=== PATIENT | male | born 1965 | race Caucasian/White ===

== ENCOUNTER → 2016-02-28 | Outpatient (CLI) | payer MEDICARE, MEDICAID | LOC: M PAIN 13:20 | PROVIDERS: ATTEND Anesthesiology | DX: M25.9 Joint disorder, unspecified (principal); Z53.9 Procedure and treatment not carried out, unspecified reason ==

== ENCOUNTER → 2016-03-13 | Outpatient (CLI) | payer OTHER, MEDICARE, MEDICAID ==
--- NOTE | 2016-03-13 23:53 | ECWPNPC ---
PATIENT NAME: EFRA MARTEL : 1965 GENDER: MALE VISIT DATE: 03/13/2016 DISCHARGE DATE: 03/13/16 1434 VISIT LOCKED DATE TIME: PHYSICIAN: CURTIS COLINDRES RESOURCE: CURTIS COLINDRES REASON FOR APPOINTMENT 1. W/C LEFT SHOULDER. HISTORY OF PRESENT ILLNESS NEW PATIENT CONSULT: WHEN DID YOUR PAIN FIRST START? . BRIEFLY DESCRIBE HOW YOUR PAIN STARTED? . HOW DOES YOUR PAIN CHANGE WITH TIME? . DOES YOUR PAIN AWAKEN YOU FROM SLEEP? . HOW MANY HOURS OF SLEEP DO YOU NORMALLY GET? . ANY DIAGNOSTIC TESTING? . FACILITY WHERE TESTS WERE DONE? ____. PAIN TREATMENT TREATMENT YES CANCER HAVE YOU EVER HAD ANY TYPE OF CANCER?NO NO. PAIN SCREENING: PATIENT HAS A COMPLAINT OF ACUTE OR CHRONIC PAIN YES FALL RISK SCREENING: SCREENING :NO FALLS IN THE PAST YEAR PIEDRA INVENTORY: QUESTIONNAIRE ASSESSEDTBD SCORE VALUE CALCULATED TBD CURRENT MEDICATIONS TAKING OXYCODONE HCL 15 MG TABLET 1 TABLET NEEDED ORALLY EVERY 6 HRS PRN FOR PAIN MDD4, TAKING LYRICA 200 MG CAPSULE 1 CAPSULE ORALLY THREE TIMES A DAY FOR PAIN MDD3, TAKING IBUPROFEN 800 MG TABLET 1 TABLET ORALLY THREE TIMES DAILY NEEDED, MEDICATION LIST REVIEWED AND RECONCILED WITH THE PATIENT PAST MEDICAL HISTORY SPINABIFIDA, CHEST PAIN, SLEEP APNEA. ALLERGIES N.K.D.A. SURGICAL HISTORY NECK SURGERY 2000, NECK SURGERY 2009, FX WRIST RT , RT CTR , 3 LT SHOULDER SURGERY . FAMILY HISTORY FATHER: ALIVE 80 YRS, DIAGNOSED WITH DIABETES MOTHER: ALIVE 81 YRS, DIAGNOSED WITH STROKE 3 SISTER(S) - HEALTHY. 1 SON(S) , 1 DAUGHTER(S) - HEALTHY. . SOCIAL HISTORY GENERAL: TOBACCO USE ARE YOU A:NONSMOKER ARE YOU A:NONSMOKER PSYCHOLOGICAL HX TREATMENTNO ALCOHOL OR DRUG TREATMENTNO PATIENT: ____. ADVANCED DIRECTIVES HEALTH CARE PROXY?NO POWER OF CORN SHELLER?NO SCREENING/ASSESSMENT TOOL NUTRITION ASSESSEDYES ARE YOU ON ANY SPECIAL DIET?NO ANY SIGNIFICANT CHANGES RELATED TO EATING, WEIGHT GAIN/LOSS, OR BOWEL HABITS?NO IF YES, IS YOUR PRIMARY CARE PROVIDER AWARE OF THIS?NO SPECIAL NEEDS REFERRALS NEEDED: NO , LEVEL OF CARE? SELF , GLASSES: NO , CONTACTS: NO , HEARING AIDS: NO , DENTURES: NO , WALKER: NO , CANE: NO , WHEELCHAIR: NO . CAFFEINE CAFFEINE USE?YES HOW OFTEN AND HOW MUCH? 1-2 CUPS COFFEE, 2 MOUNTAIN DEW/DAY RECREATIONAL DRUG USE DRUG USE?NO LEARNING BARRIERS / SPECIAL NEEDS HEARING IMPAIRED?YES PT REPORTS RINGING IN HIS EARS, HAS DIFFICULTY UNDERSTANDING AND HEARING IF THERE IS A LOT OF BACKGROUND NOISE NEW PATIENT PAIN DIARY TODAY'S VISITNOTES PATIENT DESCRIBES PAIN :ACHING, BURNING, HAVE IT ALL THE TIME, SHARP, SHOOTING FROM 0-10, WHAT LEVEL IS YOUR PAIN TODAY?0 PAIN CLINIC PFS, CLERGY, PUBLIC HEALTH REFERRALS PFS REFERRAL NEEDED?NO PFS REFERRAL NEEDED?NO PFS REFERRAL NEEDED?NO CLERGY REFERRAL NEEDED?NO CLERGY REFERRAL NEEDED?NO CLERGY REFERRAL NEEDED?NO PUBLIC HEALTH REFERRAL NEEDED?NO PUBLIC HEALTH REFERRAL NEEDED?NO PUBLIC HEALTH REFERRAL NEEDED?NO WAS THE PROVIDER NOTIFIED OF ANY PERTINENT INFO?YES WAS THE PROVIDER NOTIFIED OF ANY PERTINENT INFO?YES WAS THE PROVIDER NOTIFIED OF ANY PERTINENT INFO?YES HOSPITALIZATION/MAJOR DIAGNOSTIC PROCEDURE DENIES PAST HOSPITALIZATION. REVIEW OF SYSTEMS CONSTITUTIONAL: ANY CHANGE IN YOUR MEDICAL CONDITION? NO . CHILLS NO . FEVER NO . INFECTION: DO YOU HAVE NEW INFECTIONS? NO . DO YOU HAVE HISTORY OF MRSA? NO . MUSCULOSKELETAL: ANY NEW PATTERNS OF PAIN OR NUMBNESS? NO . SYTEMIC LUPUS NO . GASTROENTEROLOGY: ANY NEW CHANGE IN BOWEL CONTROL? NO . BARRETTS ESOPHAGUS NO . CIRRHOSIS NO . HEPATITIS NO . LIVER FAILURE NO . ACID REFLUX NO . UNEXPLAINED WEIGHT LOSS NO . GENITOURINARY: ANY NEW CHANGE IN BLADDER CONTROL? NO . IS THERE A CHANCE YOU COULD BE ? NO . HEMATOLOGY/LYMPH: DO YOU TAKE ANY BLOOD THINNERS? (FOR EXAMPLE- COUMADIN, PLAVIX, AGGRENOX, PLATEL, PRADAXA, OR XARELTO) NO . WHEN WAS YOUR LAST DOSE? DATE: TIME: . LOW PLATELET COUNT NO . SICKLE CELL DISEASE NO . VON WILLIEBRANDS NO . FACTOR V LEIDEN NO . THALLASEMIA NO . ANEMIA NO . EASY BRUISING NO . NEUROLOGY: HAVE YOU FALLEN IN THE PAST 6 MONTHS? NO . ANY NEW EXTREMITY NUMBNESS OR WEAKNESS? NO . HEAD INJURY NO . DEMENTIA NO . CEREBRAL PALSY NO . MULTIPLE SCLEROSIS NO . DIZZINESS NO . HEADACHE NO . STROKES NO . VERTIGO NO . CARDIOLOGY: DO YOU HAVE A PACEMAKER OR DEFIBRILLATOR? NO . ANGINA NO . HEART ATTACK NO . HEART SURGERY NO . CONGESTIVE HEART FAILURE/FLUID OVERLOAD NO . CHEST PAIN NO . HIGH BLOOD PRESSURE NO . IRREGULAR HEART BEAT NO . RESPIRATORY: HAVE YOU BEEN SICK IN THE PAST WEEK? NO . FEVER NO . FLU LIKE SYMPTOMS? NO . CPAP NO . BYPAP NO . ASTHMA NO . EMPHYSEMA NO . CHRONIC LUNG DISEASES NO . SHORTNESS OF BREATH ON EXERTION NO . DO YOU USE ANY TYPE OF TOBACCO (SMOKE, SMOKELESS, CHEW)? NO . COUGH NO . SNORING NO . INTEGUMENTARY: DO YOU HAVE ANY RASHES OR OPEN SORES? NO . ALLERGIC/IMMUNO: ARE YOU ALLERGIC TO SHELLFISH OR IV DYE? NO . ANY NEW ALLERGIES? NO . PSYCHIATRIC: DO YOU HAVE THOUGHTS OF HURTING YOURSELF OR SOMEONE ELSE? NO . ARE YOU ABUSED, NEGLECTED, OR IN AN UNSAFE ENVIRONMENT? NO . ENDOCRINOLOGY: ARE YOU DIABETIC? NO . THYROID DISORDER NO . OTHER: DO YOU NEED ANY PRESCRIPTIONS? YES OXYCODONE, LYRICA . IF YES, PLEASE LIST: ____ . ANY NEW PROBLEMS WITH YOUR MEDICATIONS? NO . WHEN DID YOU LAST EAT? ____ . WHEN DID YOU LAST DRINK? ____ . WHAT DID YOU LAST DRINK? ____ . NAME OF PERSON DRIVING YOU HOME? ____ . DO YOU HAVE ANY OTHER QUESTIONS OR CONCERNS NO . REVIEWED BY: PROVIDER: . VITAL SIGNS WT 203.6 LBS, HT 68 IN, BMI 30.95 INDEX, BP 150/86 MM HG, HR 85 /MIN, RR 18 /MIN, TEMP 98.4 F, OXYGEN SAT % 96%, NA INITIALS SC 12:07, REVIEWED BY: GIANA. TREATMENT OTHERS START PENNSAID SOLUTION, 2 %, 2 APPLICATIONS TO AFFECTED AREA, TRANSDERMAL, THREE TIMES DAILY NEEDED FOR PAIN, 30 DAY(S), 1, REFILLS 1 PROCEDURE CODES FA211 ESTABILISHED PATIENT [facility] FAC[facility] CHARGE ELECTRONICALLY SIGNED BY TITO DUCKWORTH ON 03/13/2016 AT 02:22 PM EST DISCLAIMER : THIS IS A VISIT SUMMARY EXTRACTED FROM THE [employer] CHART. IT IS NOT A COPY OF THE [employer] PROGRESS NOTE. DAQUAN
== END ==
LOC: M PAIN 11:20
PROVIDERS: ATTEND Anesthesiology
DX: G89.29 Other chronic pain (principal); M25.512 Pain in left shoulder; Q05.9 Spina bifida, unspecified; G47.30 Sleep apnea, unspecified; Z79.891 Long term (current) use of opiate analgesic; Z79.899 Other long term (current) drug therapy; Z79.1 Long term (current) use of non-steroidal anti-inflammatories (NSAID)

== ENCOUNTER → 2016-03-13 | Outpatient (CLI) | payer MEDICARE, MEDICAID ==
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
== END ==
LOC: M PAIN 15:40
PROVIDERS: ATTEND Nurse Practitioner Family
DX: Z09 Encounter for follow-up examination after completed treatment for conditions other than malignant neoplasm (principal); G89.29 Other chronic pain; M54.5 Low back pain; M54.2 Cervicalgia; Q05.9 Spina bifida, unspecified; G47.30 Sleep apnea, unspecified; Z79.891 Long term (current) use of opiate analgesic; Z79.1 Long term (current) use of non-steroidal anti-inflammatories (NSAID); Z79.899 Other long term (current) drug therapy

== ENCOUNTER → 2016-04-18 | Outpatient (CLI) | payer OTHER, MEDICAID, MEDICARE ==
--- NOTE | 2016-04-28 23:46 | ECWPNPC ---
PATIENT NAME: EFRA MARTEL : 1965 GENDER: MALE VISIT DATE: 04/18/2016 DISCHARGE DATE: 04/18/16 1236 VISIT LOCKED DATE TIME: PHYSICIAN: CURTIS COLINDRES RESOURCE: CURTIS COLINDRES REASON FOR APPOINTMENT 1. W/C LEFT SHOULDER HISTORY OF PRESENT ILLNESS HISTORY OF PRESENT ILLNESS: PAIN THE PATIENT DESCRIBES THE PAIN... 50 YEAR OLD MALE PATIENT WITH HISTORY OF CHRONIC LEFT SHOULDER PAIN. PATIENT DESCRIBES THE PAIN ACHING, BURNING, SHARP, SHOOTING, AND HAVING IT ALL THE TIME WITH A PAIN SCORE OF 5/10. PATIENT WAS INJURED IN A WORK RELATED INJURY ON 08/27/2013 WORKING FOR [employer], PATIENT WAS TRYING TO BREAK A UNION FREE WHEN HE INJURED HIS LEFT SHOULDER. PATIENT REPORTS THAT HE HAS HAD THREE SURGERIES ON HIS LEFT SHOULDER. PATIENT REPORTS THAT HE HAS TRIED PHYSICAL THERAPY AND THAT ONLY MADE THE PAIN WORST. MR. MARTEL STATES THAT THEY DID NOT APPROVE THE PENNSAID OINTMENT. PATIENT DENIES UNEXPLAINABLE WEIGHT LOSS, FEVER, CHILLS, NEW CHANGES ON HIS URINARY OR BOWEL CONTROL. FALL RISK SCREENING: SCREENING :NO FALLS IN THE PAST YEAR CURRENT MEDICATIONS TAKING IBUPROFEN 800 MG TABLET 1 TABLET ORALLY THREE TIMES DAILY NEEDED TAKING OXYCODONE HCL 15 MG TABLET 1 TABLET NEEDED ORALLY EVERY 6 HRS PRN FOR PAIN MDD4 TAKING LYRICA 200 MG CAPSULE 1 CAPSULE ORALLY THREE TIMES A DAY FOR PAIN MDD3 DISCONTINUED PENNSAID 2 % SOLUTION 2 APPLICATIONS TO AFFECTED AREA TRANSDERMAL THREE TIMES DAILY NEEDED FOR PAIN MEDICATION LIST REVIEWED AND RECONCILED WITH THE PATIENT PAST MEDICAL HISTORY SPINABIFIDA CHEST PAIN SLEEP APNEA ALLERGIES N.K.D.A. SURGICAL HISTORY NECK SURGERY 2000 NECK SURGERY 2010 FX WRIST RT RT CTR 3 LT SHOULDER SURGERY FAMILY HISTORY NO FAMILY HISTORY DOCUMENTED. 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 NEW PATIENT PAIN DIARY TODAY'S VISITNOTES FROM 0-10, WHAT LEVEL IS YOUR PAIN TODAY?0 PAIN CLINIC PFS, CLERGY, PUBLIC HEALTH REFERRALS PFS REFERRAL NEEDED?NO CLERGY REFERRAL NEEDED?NO PUBLIC HEALTH REFERRAL NEEDED?NO WAS THE PROVIDER NOTIFIED OF ANY PERTINENT INFO?NO PFS REFERRAL NEEDED?NO CLERGY REFERRAL NEEDED?NO PUBLIC HEALTH REFERRAL NEEDED?NO WAS THE PROVIDER NOTIFIED OF ANY PERTINENT INFO?NO HOSPITALIZATION/MAJOR DIAGNOSTIC PROCEDURE NO HOSPITALIZATION HISTORY. REVIEW OF SYSTEMS CONSTITUTIONAL: ANY CHANGE IN YOUR MEDICAL CONDITION? NO . CHILLS NO . FEVER NO . INFECTION: DO YOU HAVE NEW INFECTIONS? NO . DO YOU HAVE HISTORY OF MRSA? NO . MUSCULOSKELETAL: ANY NEW PATTERNS OF PAIN OR NUMBNESS? NO . GASTROENTEROLOGY: ANY NEW CHANGE IN BOWEL CONTROL? NO . GENITOURINARY: ANY NEW CHANGE IN BLADDER CONTROL? NO . IS THERE A CHANCE YOU COULD BE ? NO . HEMATOLOGY/LYMPH: DO YOU TAKE ANY BLOOD THINNERS? (FOR EXAMPLE- COUMADIN, PLAVIX, AGGRENOX, PLATEL, PRADAXA, OR XARELTO) NO . WHEN WAS YOUR LAST DOSE? DATE: TIME: . NEUROLOGY: HAVE YOU FALLEN IN THE PAST 6 MONTHS? NO . ANY NEW EXTREMITY NUMBNESS OR WEAKNESS? NO . CARDIOLOGY: DO YOU HAVE A PACEMAKER OR DEFIBRILLATOR? NO . RESPIRATORY: HAVE YOU BEEN SICK IN THE PAST WEEK? NO . FEVER NO . FLU LIKE SYMPTOMS? NO . COUGH NO . INTEGUMENTARY: DO YOU HAVE ANY RASHES OR OPEN SORES? NO . ALLERGIC/IMMUNO: ARE YOU ALLERGIC TO SHELLFISH OR IV DYE? NO . ANY NEW ALLERGIES? NO . PSYCHIATRIC: DO YOU HAVE THOUGHTS OF HURTING YOURSELF OR SOMEONE ELSE? NO . ARE YOU ABUSED, NEGLECTED, OR IN AN UNSAFE ENVIRONMENT? NO . ENDOCRINOLOGY: ARE YOU DIABETIC? NO . OTHER: DO YOU NEED ANY PRESCRIPTIONS? YES . IF YES, PLEASE LIST: ____OXYCODONE, . ANY NEW PROBLEMS WITH YOUR MEDICATIONS? NO . WHEN DID YOU LAST EAT? ____ . WHEN DID YOU LAST DRINK? ____ . WHAT DID YOU LAST DRINK? ____ . NAME OF PERSON DRIVING YOU HOME? ____ . DO YOU HAVE ANY OTHER QUESTIONS OR CONCERNS NO . REVIEWED BY: PROVIDER: CURTIS COLINDRES MD . VITAL SIGNS WT 208 LBS, HT 68 IN, BMI 31.62 INDEX, BP 156/89 MM HG, HR 86 /MIN, RR 18 /MIN, TEMP 98.4 F, OXYGEN SAT % 96%, NA INITIALS VD. EXAMINATION : PATIENT IS ALERT O X 3 AND COOPERATIVE. FOR THE EXAMINATION PATIENT TOOK HIS SHIRT OFF WITH THE RIGHT HAND. PATIENT HAS A SURGICAL SCAR APPROXIMATELY 3 CM IN LENGTH ON THE LEFT SHOULDER AREA, AND ANOTHER SCAR LATERAL ASPECT OF THE FIRST SCAR. PATIENT LEFT ARM IS MORE SWOLLEN. LEFT ARM IS WEAKER IN STRENGTH COMPARED TO THE RIGHT ARM. 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 PATIENT IS ABDUCT HIS RIGHT ARM AT 100 DEGREES AND THE LEFT ARM AT 5 DEGREES. PATIENT IS ABLE TO ANTERIOR FLEXION OF THE LEFT ARM AT 30 DEGREES. 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 MARTEL'S PAIN MANAGEMENT CASE. I WOULD LIKE THE PATIENT TO BEGIN USING PENNSAID OINTMENT ON THE LEFT SHOULDER AREA TO SEE IF IT WILL AID IN PAIN RELIEF. I WOULD ALSO LIKE THE PATIENT TO START USING GABAPENTIN 300 MG AT NIGHT TO AID WITH THE NEUROPATHIC PAIN DOWN THE LEFT ARM. DUE TO THE TENDERNESS AND TIGHTNESS IN THE RIGHT SHOULDER I BELIEVE THE PATIENT WOULD BENENFITS FROM TRIGGER POINT INJECTIONS. WE DISCUSSED THE RISKS, BENENFITS, AND ALTNERATIVES OF THE INJECTION AND THE PATIENT WOULD LIKE TO PROCEED AT THIS TIME. INSTRUCTIONS WERE GIVEN, QUESTIONS WERE ANSWERED, PATIENT REPORTS UNDERSTANDING AND AGREES WITH THE PLAN. I, JAIR LIEBERMAN, DOCUMENTED THE ABOVE INFORMATION ACTING A SCRIBE FOR DR. COLINDRES. I HAVE REVIEWED THE ABOVE DOCUMENT, WRITTEN BY JAIR SANDHU AND I VERIFY THAT IT IS ACCURATE. OTHERS REFILL IBUPROFEN TABLET, 800 MG, 1 TABLET WITH FOOD, ORALLY FOR PAIN, THREE TIMES DAILY NEEDED, 30 DAY(S), 60, REFILLS 2 START PENNSAID SOLUTION, 2 %, 2 APPLICATIONS TO AFFECTED AREA, TRANSDERMAL, FOUR TIMES DAILY NEEDED FOR PAIN, 30 DAY(S), 1, REFILLS 2 START GABAPENTIN CAPSULE, 300 MG, 1 CAPSULE, ORALLY, BEFORE BEDTIME, 30 DAY(S), 30, REFILLS 1 PROCEDURES PN WORKMANS' COMP OPINION IN YOUR OPINION, WAS THE INCIDENT THAT THE PATIENT DESCRIBED THE COMPETENT MEDICAL CAUSE OF THIS INJURY/ILLNESS? YES ARE THE PATIENT'S COMPLAINTS CONSISTENT WITH HIS/HER HISTORY OF THE INJURY/ILLNESS? YES IS THE PATIENT'S HISTORY OF THE INJURY/ILLNESS CONSISTENT WITH YOUR OBJECTIVE FINDING? YES WHAT IS THE PERCENTAGE OF TEMPORARY IMPAIRMENT? TOTAL = 100% IS THE PATIENT WORKING? NO DOCTOR ON SITE: CURTIS ABURTO MD PROCEDURE CODES FA211 ESTABILISHED PATIENT [facility] FAC[facility] CHARGE G8427 DOC MEDS VERIFIED W/PT OR RE G8730 PAIN ASSESS POS TOOL F/U PLAN DOC DISPOSITION & COMMUNICATION FOLLOW UP TPI AFTER APPROVAL ELECTRONICALLY SIGNED BY CURTIS COLINDRES MD ON 04/28/2016 AT 09:13 PM EDT DISCLAIMER : THIS IS A VISIT SUMMARY EXTRACTED FROM THE [employer] CHART. IT IS NOT A COPY OF THE [employer] PROGRESS NOTE. DAQUAN
== END ==
LOC: M PAIN 11:00
PROVIDERS: ATTEND Anesthesiology
DX: Z09 Encounter for follow-up examination after completed treatment for conditions other than malignant neoplasm (principal); G89.29 Other chronic pain; G90.513 Complex regional pain syndrome I of upper limb, bilateral; M79.1 Myalgia; Q05.9 Spina bifida, unspecified; G47.30 Sleep apnea, unspecified; Z79.899 Other long term (current) drug therapy

== ENCOUNTER → 2016-04-18 | Outpatient (CLI) | payer MEDICARE, MEDICAID, OTHER ==
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
== END ==
LOC: M PAIN 10:20
PROVIDERS: ATTEND Nurse Practitioner Family
DX: Z09 Encounter for follow-up examination after completed treatment for conditions other than malignant neoplasm (principal); G89.29 Other chronic pain; M79.1 Myalgia; M96.1 Postlaminectomy syndrome, not elsewhere classified; M54.16 Radiculopathy, lumbar region; G47.00 Insomnia, unspecified; Q05.9 Spina bifida, unspecified; Z79.899 Other long term (current) drug therapy

== ENCOUNTER → 2016-05-30 | Outpatient (CLI) | payer MEDICARE, MEDICAID ==
--- NOTE | 2016-06-09 00:47 | ECWPNPC ---
PATIENT NAME: EFRA MARTEL : 1965 GENDER: MALE VISIT DATE: 05/30/2016 DISCHARGE DATE: 05/30/16 1617 VISIT LOCKED DATE TIME: PHYSICIAN: HAFSA LOWERY RESOURCE: HAFSA LOWERY REASON FOR APPOINTMENT 1. NECK BACK HISTORY OF PRESENT ILLNESS HISTORY OF PRESENT ILLNESS: HERE FOR F/U OF PERSISTENT NECK AND LOW BACK PAIN .RATING PAIN VAS 3/10.DESCRIBES PAIN CONSTANT BURNING AND ACHING.CURRENTLY USING LYRICA 200MG TID AND OXYCODONE 15MG Q6H PRN PAIN.CONTINUES TO FIND CURRENT CHRONIC PAIN MEDICATION HELPFUL AT REDUCING PAIN AND KEEPING HIM COMFORTABLE.DENIES ADVERSE EFFECTS WITH MEDICATION. PAIN THE PATIENT DESCRIBES THE PAIN... FALL RISK SCREENING: SCREENING :NO FALLS IN THE PAST YEAR CURRENT MEDICATIONS TAKING OXYCODONE HCL 15 MG TABLET 1 TABLET NEEDED ORALLY EVERY 6 HRS PRN FOR PAIN MDD4 TAKING IBUPROFEN 800 MG TABLET 1 TABLET WITH FOOD ORALLY FOR PAIN THREE TIMES DAILY NEEDED TAKING PENNSAID 2 % SOLUTION 2 APPLICATIONS TO AFFECTED AREA TRANSDERMAL FOUR TIMES DAILY NEEDED FOR PAIN TAKING GABAPENTIN 300 MG CAPSULE 1 CAPSULE ORALLY BEFORE BEDTIME TAKING LYRICA 200 MG CAPSULE 1 CAPSULE ORALLY THREE TIMES A DAY FOR PAIN MDD3 MEDICATION LIST REVIEWED AND RECONCILED WITH THE PATIENT PAST MEDICAL HISTORY SPINABIFIDA CHEST PAIN SLEEP APNEA ALLERGIES N.K.D.A. SOCIAL HISTORY GENERAL: PAIN CLINIC PFS, CLERGY, PUBLIC HEALTH REFERRALS CLERGY REFERRAL NEEDED?NO WAS THE PROVIDER NOTIFIED OF ANY PERTINENT INFO?NO PFS REFERRAL NEEDED?NO PUBLIC HEALTH REFERRAL NEEDED?NO PATIENT: ____. REVIEW OF SYSTEMS CONSTITUTIONAL: ANY CHANGE IN YOUR MEDICAL CONDITION? NO . CHILLS NO . FEVER NO . INFECTION: DO YOU HAVE NEW INFECTIONS? NO . DO YOU HAVE HISTORY OF MRSA? NO . MUSCULOSKELETAL: ANY NEW PATTERNS OF PAIN OR NUMBNESS? NO . GASTROENTEROLOGY: ANY NEW CHANGE IN BOWEL CONTROL? NO . GENITOURINARY: ANY NEW CHANGE IN BLADDER CONTROL? NO . IS THERE A CHANCE YOU COULD BE ? NO . HEMATOLOGY/LYMPH: DO YOU TAKE ANY BLOOD THINNERS? (FOR EXAMPLE- COUMADIN, PLAVIX, AGGRENOX, PLATEL, PRADAXA, OR XARELTO) NO . WHEN WAS YOUR LAST DOSE? DATE: TIME: . NEUROLOGY: HAVE YOU FALLEN IN THE PAST 6 MONTHS? NO . ANY NEW EXTREMITY NUMBNESS OR WEAKNESS? NO . CARDIOLOGY: DO YOU HAVE A PACEMAKER OR DEFIBRILLATOR? NO . RESPIRATORY: HAVE YOU BEEN SICK IN THE PAST WEEK? NO . FEVER NO . FLU LIKE SYMPTOMS? NO . COUGH NO . INTEGUMENTARY: DO YOU HAVE ANY RASHES OR OPEN SORES? NO . ALLERGIC/IMMUNO: ARE YOU ALLERGIC TO SHELLFISH OR IV DYE? NO . ANY NEW ALLERGIES? NO . PSYCHIATRIC: DO YOU HAVE THOUGHTS OF HURTING YOURSELF OR SOMEONE ELSE? NO . ARE YOU ABUSED, NEGLECTED, OR IN AN UNSAFE ENVIRONMENT? NO . ENDOCRINOLOGY: ARE YOU DIABETIC? NO . OTHER: DO YOU NEED ANY PRESCRIPTIONS? YES . IF YES, PLEASE LIST: OXYCODONE . ANY NEW PROBLEMS WITH YOUR MEDICATIONS? NO . WHEN DID YOU LAST EAT? ____ . WHEN DID YOU LAST DRINK? ____ . WHAT DID YOU LAST DRINK? ____ . NAME OF PERSON DRIVING YOU HOME? ____ . DO YOU HAVE ANY OTHER QUESTIONS OR CONCERNS NO . REVIEWED BY: PROVIDER: HAFSA HERNANDEZ . VITAL SIGNS WT 204 LBS, HT 68 IN, BMI 31.01 INDEX, BP 143/81 MM HG, HR 94 /MIN, RR 18 /MIN, TEMP 99.4 F, OXYGEN SAT % 96%, NA INITIALS AW 1528, REVIEWED BY: AD. EXAMINATION GENERAL EXAMINATION: LUNGS:LUNG SOUNDS ARE CLEAR. HEART:HEART RATE REGULAR. MUSCULOSKELETAL:*, MUSCLE STRENGTH TESTING 5/5 BILATERAL LOWER EXTREMITIES, PALPATION: POSITIVE FOR PAIN OVER L/S SPINE. POSITIVE FOR PAIN OVER L/S PARASPINALS.CERVICAL VERTEBRAL SPINE TENDERNESS.ROJM NECK LIMITED DUE TO STIFFNESS.MUSCLE STRENGTH TESTING VIJAY EXTREMITIES 5/5.. DIAGNOSTIC: . ASSESSMENTS MYALGIA - M79.1 (PRIMARY) POSTLAMINECTOMY SYNDROME, NOT ELSEWHERE CLASSIFIED - M96.1 RADICULOPATHY, LUMBAR REGION - M54.16 TREATMENT MYALGIA REFILL OXYCODONE HCL TABLET, 15 MG, 1 TABLET NEEDED, ORALLY, EVERY 6 HRS PRN FOR PAIN MDD4, 30 DAY(S), 120, REFILLS 0 REFILL LYRICA CAPSULE, 200 MG, 1 CAPSULE, ORALLY, THREE TIMES A DAY FOR PAIN MDD3, 30 DAY(S), 90, REFILLS 5 PROCEDURE CODES FA211 ESTABILISHED PATIENT [facility] CHARGE DISPOSITION & COMMUNICATION FOLLOW UP SCHEDULE ON SAME DAY , 4 WEEKS ELECTRONICALLY SIGNED BY MARY PENA ON 06/08/2016 AT 05:16 PM EDT DISCLAIMER : THIS IS A VISIT SUMMARY EXTRACTED FROM THE [employer] CHART. IT IS NOT A COPY OF THE [employer] PROGRESS NOTE. DAQUAN
== END | disposition home or self-care (01) ==
LOC: M PAIN 14:00
PROVIDERS: ATTEND Nurse Practitioner Family
DX: G89.29 Other chronic pain (principal); M79.1 Myalgia; M96.1 Postlaminectomy syndrome, not elsewhere classified; M54.16 Radiculopathy, lumbar region; Q05.9 Spina bifida, unspecified; G47.30 Sleep apnea, unspecified; Z79.899 Other long term (current) drug therapy

== ENCOUNTER → 2016-05-30 | Outpatient (CLI) | payer OTHER, MEDICARE, MEDICAID ==
--- NOTE | 2016-06-07 01:26 | ECWPNPC ---
PATIENT NAME: EFRA MARTEL : 1965 GENDER: MALE VISIT DATE: 05/30/2016 DISCHARGE DATE: 05/30/16 1515 VISIT LOCKED DATE TIME: PHYSICIAN: CURTIS COLINDRES RESOURCE: CURTIS COLINDRES REASON FOR APPOINTMENT 1. W/C SHOULDER HISTORY OF PRESENT ILLNESS HISTORY OF PRESENT ILLNESS: PAIN THE PATIENT DESCRIBES THE PAIN... 50 YEAR OLD MALE PATIENT WITH HISTORY OF CHRONIC LEFT SHOULDER PAIN. PATIENT DESCRIBES THE PAIN ACHING, BURNING, SHARP, TENDER, THROBBING, SORE WITH PAIN SCORE OF 3/10 ON TODAY'S VISIT. PATIENT WAS INJURED IN A WORK RELATED INJURY ON 08/27/2013 WORKING FOR [employer], PATIENT WAS TRYING TO BREAK A UNION FREE WHEN HE INJURED HIS LEFT SHOULDER. PATIENT REPORTS THAT HE HAS HAD THREE SURGERIES ON HIS LEFT SHOULDER. PATIENT REPORTS THAT HE HAS TRIED PHYSICAL THERAPY AND THAT ONLY MADE THE PAIN WORST. PATIENT STATES THAT SOME NIGHT HE HAS DIFFICULTIES SLEEPING AND STAYING ASLEEP. PATIENT DENIES UNEXPLAINABLE WEIGHT LOSS, FEVER, CHILLS, NEW CHANGES ON HIS URINARY OR BOWEL CONTROL. FALL RISK SCREENING: SCREENING :NO FALLS IN THE PAST YEAR CURRENT MEDICATIONS TAKING OXYCODONE HCL 15 MG TABLET 1 TABLET NEEDED ORALLY EVERY 6 HRS PRN FOR PAIN MDD4 TAKING IBUPROFEN 800 MG TABLET 1 TABLET WITH FOOD ORALLY FOR PAIN THREE TIMES DAILY NEEDED TAKING PENNSAID 2 % SOLUTION 2 APPLICATIONS TO AFFECTED AREA TRANSDERMAL FOUR TIMES DAILY NEEDED FOR PAIN TAKING GABAPENTIN 300 MG CAPSULE 1 CAPSULE ORALLY BEFORE BEDTIME TAKING LYRICA 200 MG CAPSULE 1 CAPSULE ORALLY THREE TIMES A DAY FOR PAIN MDD3 MEDICATION LIST REVIEWED AND RECONCILED WITH THE PATIENT PAST MEDICAL HISTORY SPINABIFIDA CHEST PAIN SLEEP APNEA ALLERGIES N.K.D.A. SURGICAL HISTORY NECK SURGERY 2000 NECK SURGERY 2009 FX WRIST RT RT CTR 3 LT SHOULDER SURGERY FAMILY HISTORY NO FAMILY HISTORY DOCUMENTED. SOCIAL HISTORY GENERAL: PAIN CLINIC PFS, CLERGY, PUBLIC HEALTH REFERRALS CLERGY REFERRAL NEEDED?NO WAS THE PROVIDER NOTIFIED OF ANY PERTINENT INFO?NO PFS REFERRAL NEEDED?NO PUBLIC HEALTH REFERRAL NEEDED?NO PATIENT: ____. HOSPITALIZATION/MAJOR DIAGNOSTIC PROCEDURE NO HOSPITALIZATION HISTORY. REVIEW OF SYSTEMS CONSTITUTIONAL: ANY CHANGE IN YOUR MEDICAL CONDITION? NO . CHILLS NO . FEVER NO . INFECTION: DO YOU HAVE NEW INFECTIONS? NO . DO YOU HAVE HISTORY OF MRSA? NO . MUSCULOSKELETAL: ANY NEW PATTERNS OF PAIN OR NUMBNESS? NO . GASTROENTEROLOGY: ANY NEW CHANGE IN BOWEL CONTROL? NO . GENITOURINARY: ANY NEW CHANGE IN BLADDER CONTROL? NO . IS THERE A CHANCE YOU COULD BE ? NO . HEMATOLOGY/LYMPH: DO YOU TAKE ANY BLOOD THINNERS? (FOR EXAMPLE- COUMADIN, PLAVIX, AGGRENOX, PLATEL, PRADAXA, OR XARELTO) NO . WHEN WAS YOUR LAST DOSE? DATE: TIME: . NEUROLOGY: HAVE YOU FALLEN IN THE PAST 6 MONTHS? NO . ANY NEW EXTREMITY NUMBNESS OR WEAKNESS? NO . CARDIOLOGY: DO YOU HAVE A PACEMAKER OR DEFIBRILLATOR? NO . RESPIRATORY: HAVE YOU BEEN SICK IN THE PAST WEEK? NO . FEVER NO . FLU LIKE SYMPTOMS? NO . COUGH NO . INTEGUMENTARY: DO YOU HAVE ANY RASHES OR OPEN SORES? NO . ALLERGIC/IMMUNO: ARE YOU ALLERGIC TO SHELLFISH OR IV DYE? NO . ANY NEW ALLERGIES? NO . PSYCHIATRIC: DO YOU HAVE THOUGHTS OF HURTING YOURSELF OR SOMEONE ELSE? NO . ARE YOU ABUSED, NEGLECTED, OR IN AN UNSAFE ENVIRONMENT? NO . ENDOCRINOLOGY: ARE YOU DIABETIC? NO . OTHER: DO YOU NEED ANY PRESCRIPTIONS? YES OXYCODONE . IF YES, PLEASE LIST: ____ . ANY NEW PROBLEMS WITH YOUR MEDICATIONS? NO . WHEN DID YOU LAST EAT? ____ . WHEN DID YOU LAST DRINK? ____ . WHAT DID YOU LAST DRINK? ____ . NAME OF PERSON DRIVING YOU HOME? ____ . DO YOU HAVE ANY OTHER QUESTIONS OR CONCERNS NO . REVIEWED BY: PROVIDER: CURTIS COLINDRES MD . VITAL SIGNS WT 204 LBS, HT 68 IN, BMI 31.01 INDEX, BP 143/81 MM HG, HR 94 /MIN, RR 18 /MIN, TEMP 99.4 F, OXYGEN SAT % 96%, NA INITIALS AW 1409, REVIEWED BY: MLF. EXAMINATION : PATIENT IS ALERT O X 3 AND COOPERATIVE. PATIENT HAS DIFFICULTIES REMOVING HIS SHIRT FOR THE EXAMINATION. PATIENT IS ABLE TO ABDUCT HIS RIGHT ARM AND CAN NOT ABDUCT THE LEFT ARM. THERE IS HYPERPATHIA IN THE LEFT SHOULDER AND SOME LEVEL OF ALLODYNIA ON THE SURGICAL SCARS. THERE IS TENDERNESS IN THE LEFT SHOULDER WITH BANDS OF TISSUES, RESTRICTION OF MOVEMENT, AND PRESENCE OF TRIGGER POINTS. PATIENT'S LEFT ARM IS WEAKER AT FLEXION AND EXTENSION AND THE HAIRMASTERS MANAGER ON THE LEFT HAND IS REDUCED. THERE IS RESTRICTION OF THE EXTENSION MOVEMENT OF THE NECK. PATIENT IS ABLE TO LATERALLY MOVE HIS NECK TO THE LEFT AT 40 DEGREES AND TO THE RIGHT AT 45 DEGREES. ASSESSMENTS MYALGIA - M79.1 (PRIMARY) TREATMENT MYALGIA NOTES: WE DISCUSSED SEVERAL ISSUES WITH MR. MARTEL'S PAIN MANAGEMENT CASE. AT THIS TIME I WILL REFILL IBUPROFEN AND GABAPENTIN TODAY. PATIENT IS TAKING IBUPROFEN FOR THE SOMATIC PAIN AND GABAPENTIN FOR THE NEUROPATHIC PAIN. I WILL HAVE THE PATIENT START ON PENNSAID TODAY FOR THE SOMATIC PAIN. AFTER EXAMINING THE PATIENT HE IS A GOOD CANDIDATE FOR A TRIGGER POINT INJECTION. WE DISCUSSED THE RISK, BENEFITS, AND ALTERNATIVES AND THE PATIENT WOULD LIKE TO PROCEED. PATIENT WILL BE BOOKED PENDING APPROVAL. I DISCUSSED WITH THE PATIENT ABOUT THE POSSIBILITY OF A DCS AND TO SEE IF IT IS SOMETHING HE WOULD BE INTERESTED IN. INSTRUCTIONS WERE GIVEN, QUESTIONS WERE ANSWERED, PATIENT REPORTS UNDERSTANDING AND AGREES WITH THE PLAN. I, JESÚS HERR, DOCUMENTED THE ABOVE INFORMATION ACTING A SCRIBE FOR DR. COLINDRES. I HAVE REVIEWED THE ABOVE DOCUMENT, WRITTEN BY JESÚS HERR SCRIBEyal AND I VERIFY THAT IT IS ACCURATE. OTHERS REFILL IBUPROFEN TABLET, 800 MG, 1 TABLET WITH FOOD, ORALLY FOR PAIN, THREE TIMES DAILY NEEDED MDD3, 30 DAY(S), 70, REFILLS 2 REFILL GABAPENTIN CAPSULE, 300 MG, 1 CAPSULE, ORALLY, BEFORE BEDTIME, 30 DAY(S), 30, REFILLS 1 START PENNSAID 1.5% DROPS, 1.5%, 10, TOPICALLY, FOUR TIMES DAILY NEEDED, 30 DAY(S), 1, REFILLS 2 PROCEDURES PN WORKMANS' COMP OPINION IN YOUR OPINION, WAS THE INCIDENT THAT THE PATIENT DESCRIBED THE COMPETENT MEDICAL CAUSE OF THIS INJURY/ILLNESS? YES ARE THE PATIENT'S COMPLAINTS CONSISTENT WITH HIS/HER HISTORY OF THE INJURY/ILLNESS? YES IS THE PATIENT'S HISTORY OF THE INJURY/ILLNESS CONSISTENT WITH YOUR OBJECTIVE FINDING? YES WHAT IS THE PERCENTAGE OF TEMPORARY IMPAIRMENT? TOTAL = 100% IS THE PATIENT WORKING? NO DOCTOR ON SITE: CURTIS ABURTO MD PREVENTIVE MEDICINE PAIN CLINIC TEACHING: PROCEDURE TEACHING PRE PROCEDURE INSTRUCTIONS FOR TPI REVIEWED WITH PT AGAIN. PT RECEIVED INSTRUCTIONS FOR TPI AT HIS LAST VS AND STATES HE HAS PRINTED INSTRUCTIONS AT HOME. . PROCEDURE CODES FA211 ESTABILISHED PATIENT [facility] CHARGE B2523 PAIN ASSESS POS TOOL F/U PLAN DOC G8427 DOC MEDS VERIFIED W/PT OR RE DISPOSITION & COMMUNICATION FOLLOW UP TPI PENDING APPROVAL ELECTRONICALLY SIGNED BY CURTIS COLINDRES MD ON 06/04/2016 AT 08:35 PM EDT DISCLAIMER : THIS IS A VISIT SUMMARY EXTRACTED FROM THE [facility] CHART. IT IS NOT A COPY OF THE [employer] PROGRESS NOTE. MTDD
== END ==
LOC: M PAIN 13:40
PROVIDERS: ATTEND Anesthesiology
DX: G89.29 Other chronic pain (principal); M79.1 Myalgia; M25.512 Pain in left shoulder; Q05.9 Spina bifida, unspecified; G47.30 Sleep apnea, unspecified; Z79.1 Long term (current) use of non-steroidal anti-inflammatories (NSAID); Z79.899 Other long term (current) drug therapy

== ENCOUNTER → 2016-07-19 | Outpatient (CLI) | payer MEDICARE, MEDICAID, OTHER ==
--- NOTE | 2016-07-19 23:51 | ECWPNPC ---
PATIENT NAME: EFRA MARTEL : 1965 GENDER: MALE VISIT DATE: 07/19/2016 DISCHARGE DATE: 07/19/16 1204 VISIT LOCKED DATE TIME: PHYSICIAN: HAFSA LOWERY RESOURCE: HAFSA LOWERY REASON FOR APPOINTMENT 1. NECK AND BACK, NON COMP HISTORY OF PRESENT ILLNESS HISTORY OF PRESENT ILLNESS: HERE FOR F/U OF PERSISTENT NECK AND LOW BACK PAIN .RATING PAIN VAS 2/10.DESCRIBES PAIN CONSTANT BURNING AND ACHING.CURRENTLY USING LYRICA 200MG TID AND OXYCODONE 15MG Q6H PRN PAIN.CONTINUES TO FIND CURRENT CHRONIC PAIN MEDICATION HELPFUL AT REDUCING PAIN AND KEEPING HIM COMFORTABLE.DENIES ADVERSE EFFECTS WITH MEDICATION. PAIN THE PATIENT DESCRIBES THE PAIN... THE PATIENT DESCRIBES THE PAIN... FALL RISK SCREENING: SCREENING :NO FALLS IN THE PAST YEAR CURRENT MEDICATIONS TAKING PENNSAID 1.5% 1.5% DROPS 10 TOPICALLY FOUR TIMES DAILY NEEDED TAKING IBUPROFEN 800 MG TABLET 1 TABLET WITH FOOD ORALLY FOR PAIN THREE TIMES DAILY NEEDED TAKING PENNSAID 2 % SOLUTION 2 APPLICATIONS TO AFFECTED AREA TRANSDERMAL FOUR TIMES DAILY NEEDED FOR PAIN TAKING GABAPENTIN 300 MG CAPSULE 1 CAPSULE ORALLY BEFORE BEDTIME TAKING LYRICA 200 MG CAPSULE 1 CAPSULE ORALLY THREE TIMES A DAY FOR PAIN MDD3 TAKING OXYCODONE HCL 15 MG TABLET 1 TABLET NEEDED ORALLY EVERY 6 HRS PRN FOR PAIN MDD4 MEDICATION LIST REVIEWED AND RECONCILED WITH THE PATIENT PAST MEDICAL HISTORY SPINABIFIDA CHEST PAIN SLEEP APNEA ALLERGIES N.K.D.A. REVIEW OF SYSTEMS CONSTITUTIONAL: ANY CHANGE IN YOUR MEDICAL CONDITION? NO . CHILLS NO . FEVER NO . INFECTION: DO YOU HAVE NEW INFECTIONS? NO . DO YOU HAVE HISTORY OF MRSA? NO . MUSCULOSKELETAL: ANY NEW PATTERNS OF PAIN OR NUMBNESS? NO . GASTROENTEROLOGY: ANY NEW CHANGE IN BOWEL CONTROL? NO . GENITOURINARY: ANY NEW CHANGE IN BLADDER CONTROL? NO . IS THERE A CHANCE YOU COULD BE ? NO . HEMATOLOGY/LYMPH: DO YOU TAKE ANY BLOOD THINNERS? (FOR EXAMPLE- COUMADIN, PLAVIX, AGGRENOX, PLATEL, PRADAXA, OR XARELTO) NO . WHEN WAS YOUR LAST DOSE? DATE: TIME: . NEUROLOGY: HAVE YOU FALLEN IN THE PAST 6 MONTHS? NO . ANY NEW EXTREMITY NUMBNESS OR WEAKNESS? NO . CARDIOLOGY: DO YOU HAVE A PACEMAKER OR DEFIBRILLATOR? NO . RESPIRATORY: HAVE YOU BEEN SICK IN THE PAST WEEK? NO . FEVER NO . FLU LIKE SYMPTOMS? NO . COUGH NO . INTEGUMENTARY: DO YOU HAVE ANY RASHES OR OPEN SORES? NO . ALLERGIC/IMMUNO: ARE YOU ALLERGIC TO SHELLFISH OR IV DYE? NO . ANY NEW ALLERGIES? NO . PSYCHIATRIC: DO YOU HAVE THOUGHTS OF HURTING YOURSELF OR SOMEONE ELSE? NO . ARE YOU ABUSED, NEGLECTED, OR IN AN UNSAFE ENVIRONMENT? NO . ENDOCRINOLOGY: ARE YOU DIABETIC? NO . OTHER: DO YOU NEED ANY PRESCRIPTIONS? NO . IF YES, PLEASE LIST: ____ . ANY NEW PROBLEMS WITH YOUR MEDICATIONS? NO . WHEN DID YOU LAST EAT? ____ . WHEN DID YOU LAST DRINK? ____ . WHAT DID YOU LAST DRINK? ____ . NAME OF PERSON DRIVING YOU HOME? ____ . DO YOU HAVE ANY OTHER QUESTIONS OR CONCERNS NO . REVIEWED BY: PROVIDER: HAFSA HERNANDEZ . VITAL SIGNS WT 212.4 LBS, HT 68 IN, BMI 32.29 INDEX, BP 154/102 L ARM, REPEAT BP 160/89 R ARM, HR 92 /MIN, RR 16 /MIN, TEMP 97.8 F, OXYGEN SAT % 96%, NA INITIALS TL 1123, REVIEWED BY: CS. EXAMINATION GENERAL EXAMINATION: LUNGS:LUNG SOUNDS ARE CLEAR. HEART:HEART RATE REGULAR. MUSCULOSKELETAL:*, MUSCLE STRENGTH TESTING 5/5 BILATERAL LOWER EXTREMITIES, PALPATION: POSITIVE FOR PAIN OVER L/S SPINE. POSITIVE FOR PAIN OVER L/S PARASPINALS.CERVICAL VERTEBRAL SPINE TENDERNESS.ROJM NECK LIMITED DUE TO STIFFNESS.MUSCLE STRENGTH TESTING VIJAY EXTREMITIES 5/5.. DIAGNOSTIC: . ASSESSMENTS MYALGIA - M79.1 (PRIMARY) POSTLAMINECTOMY SYNDROME, NOT ELSEWHERE CLASSIFIED - M96.1 RADICULOPATHY, LUMBAR REGION - M54.16 TREATMENT MYALGIA CONTINUE LYRICA CAPSULE, 200 MG, 1 CAPSULE, ORALLY, THREE TIMES A DAY FOR PAIN MDD3, 30 DAY(S), 90, REFILLS 2 REFILL OXYCODONE HCL TABLET, 15 MG, 1 TABLET NEEDED, ORALLY, EVERY 6 HRS PRN FOR PAIN MDD4, 30 DAY(S), 120, REFILLS 0 PROCEDURE CODES FA211 ESTABILISHED PATIENT [facility] CHARGE DISPOSITION & COMMUNICATION FOLLOW UP 2 MONTHS ELECTRONICALLY SIGNED BY MARY PENA ON 07/19/2016 AT 02:48 PM EDT DISCLAIMER : THIS IS A VISIT SUMMARY EXTRACTED FROM THE [employer] CHART. IT IS NOT A COPY OF THE [employer] PROGRESS NOTE. DAQUAN
== END ==
LOC: M PAIN 11:20
PROVIDERS: ATTEND Nurse Practitioner Family
DX: G89.29 Other chronic pain (principal); M79.1 Myalgia; M96.1 Postlaminectomy syndrome, not elsewhere classified; M54.16 Radiculopathy, lumbar region; Q05.9 Spina bifida, unspecified; G47.30 Sleep apnea, unspecified; Z79.891 Long term (current) use of opiate analgesic; Z79.899 Other long term (current) drug therapy

== ENCOUNTER → 2016-07-19 | Outpatient (CLI) | payer OTHER, MEDICARE, MEDICAID ==
--- NOTE | 2016-07-31 01:46 | ECWPNPC ---
PATIENT NAME: EFRA MARTEL : 1965 GENDER: MALE VISIT DATE: 07/19/2016 DISCHARGE DATE: 07/19/16 1355 VISIT LOCKED DATE TIME: PHYSICIAN: CURTIS COLINDRES RESOURCE: CURTIS COLINDRES REASON FOR APPOINTMENT 1. WC, L SHOULDER HISTORY OF PRESENT ILLNESS HISTORY OF PRESENT ILLNESS: PAIN THE PATIENT DESCRIBES THE PAIN... 50 YEAR OLD MALE PATIENT WITH HISTORY OF CHRONIC LEFT SHOULDER PAIN. PATIENT DESCRIBES THE PAIN ACHING, BURNING, SHARP, STABBING, TENDER, THROBBING, SORE, SHOOTING, AND HAVING IT ALL THE TIME WITH A PAIN SCORE OF 2/10 ON TODAY'S VISIT. 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 PATIENT REPORTS THAT HE HAS HAD THREE SURGERIES ON HIS LEFT SHOULDER. PATIENT REPORTS THAT HE HAS TRIED PHYSICAL THERAPY AND THAT ONLY MADE THE PAIN WORST, PATIENT STATES HE DOES SOME PHYSICAL THERAPY EXERCISES AT HOME TO TRY TO PREVENT HIS LEFT SHOULDER FROM LOCKING UP. PATIENT REPORTS OF PAIN IN THE LEFT SHOULDER RADIATING DOWN THE LEFT ARM TO HIS HANDS. PATIENT DENIES UNEXPLAINABLE WEIGHT LOSS, FEVER, CHILLS, NEW CHANGES ON HIS URINARY OR BOWEL CONTROL. FALL RISK SCREENING: SCREENING :NO FALLS IN THE PAST YEAR CURRENT MEDICATIONS TAKING PENNSAID 1.5% 1.5% DROPS 10 TOPICALLY FOUR TIMES DAILY NEEDED TAKING IBUPROFEN 800 MG TABLET 1 TABLET WITH FOOD ORALLY FOR PAIN THREE TIMES DAILY NEEDED TAKING GABAPENTIN 300 MG CAPSULE 1 CAPSULE ORALLY BEFORE BEDTIME TAKING LYRICA 200 MG CAPSULE 1 CAPSULE ORALLY THREE TIMES A DAY FOR PAIN MDD3 TAKING OXYCODONE HCL 15 MG TABLET 1 TABLET NEEDED ORALLY EVERY 6 HRS PRN FOR PAIN MDD4 NOT-TAKING PENNSAID 2 % SOLUTION 2 APPLICATIONS TO AFFECTED AREA TRANSDERMAL FOUR TIMES DAILY NEEDED FOR PAIN MEDICATION LIST REVIEWED AND RECONCILED WITH THE PATIENT PAST MEDICAL HISTORY SPINABIFIDA CHEST PAIN SLEEP APNEA ALLERGIES N.K.D.A. SURGICAL HISTORY NECK SURGERY 2001 NECK SURGERY 2010 FX WRIST RT RT CTR 3 LT SHOULDER SURGERY FAMILY HISTORY NO FAMILY HISTORY DOCUMENTED. SOCIAL HISTORY GENERAL: PAIN CLINIC PFS, CLERGY, PUBLIC HEALTH REFERRALS CLERGY REFERRAL NEEDED?NO WAS THE PROVIDER NOTIFIED OF ANY PERTINENT INFO?NO PFS REFERRAL NEEDED?NO PUBLIC HEALTH REFERRAL NEEDED?NO PATIENT: ____. HOSPITALIZATION/MAJOR DIAGNOSTIC PROCEDURE NO HOSPITALIZATION HISTORY. REVIEW OF SYSTEMS CONSTITUTIONAL: ANY CHANGE IN YOUR MEDICAL CONDITION? NO . CHILLS NO . FEVER NO . INFECTION: DO YOU HAVE NEW INFECTIONS? NO . DO YOU HAVE HISTORY OF MRSA? NO . MUSCULOSKELETAL: ANY NEW PATTERNS OF PAIN OR NUMBNESS? NO . GASTROENTEROLOGY: ANY NEW CHANGE IN BOWEL CONTROL? NO . GENITOURINARY: ANY NEW CHANGE IN BLADDER CONTROL? NO . IS THERE A CHANCE YOU COULD BE ? NO . HEMATOLOGY/LYMPH: DO YOU TAKE ANY BLOOD THINNERS? (FOR EXAMPLE- COUMADIN, PLAVIX, AGGRENOX, PLATEL, PRADAXA, OR XARELTO) NO . WHEN WAS YOUR LAST DOSE? DATE: TIME: . NEUROLOGY: HAVE YOU FALLEN IN THE PAST 6 MONTHS? NO . ANY NEW EXTREMITY NUMBNESS OR WEAKNESS? NO . CARDIOLOGY: DO YOU HAVE A PACEMAKER OR DEFIBRILLATOR? NO . RESPIRATORY: HAVE YOU BEEN SICK IN THE PAST WEEK? NO . FEVER NO . FLU LIKE SYMPTOMS? NO . COUGH NO . INTEGUMENTARY: DO YOU HAVE ANY RASHES OR OPEN SORES? NO . ALLERGIC/IMMUNO: ARE YOU ALLERGIC TO SHELLFISH OR IV DYE? NO . ANY NEW ALLERGIES? NO . PSYCHIATRIC: DO YOU HAVE THOUGHTS OF HURTING YOURSELF OR SOMEONE ELSE? NO . ARE YOU ABUSED, NEGLECTED, OR IN AN UNSAFE ENVIRONMENT? NO . ENDOCRINOLOGY: ARE YOU DIABETIC? NO . OTHER: DO YOU NEED ANY PRESCRIPTIONS? YES . IF YES, PLEASE LIST: LYRICA AND GABAPENTIN . ANY NEW PROBLEMS WITH YOUR MEDICATIONS? NO . WHEN DID YOU LAST EAT? ____ . WHEN DID YOU LAST DRINK? ____ . WHAT DID YOU LAST DRINK? ____ . NAME OF PERSON DRIVING YOU HOME? ____ . DO YOU HAVE ANY OTHER QUESTIONS OR CONCERNS NO . REVIEWED BY: PROVIDER: CURTIS COLINDRES MD . VITAL SIGNS WT 212.4 LBS, HT 68 IN, BMI 32.29 INDEX, BP 160/89 MM HG, HR 92 /MIN, RR 16 /MIN, TEMP 97.8 F, OXYGEN SAT % 96%, NA INITIALS SC 12:13, REVIEWED BY: CS. EXAMINATION : PATIENT IS ALERT O X 3 AND COOPERATIVE. PATIENT HAS DIFFICULTIES TAKING HIS SHIRT OFF FOR THE EXAMINATION, PATIENT IS ONLY ABLE TO USING THE RIGHT ARM AND CAN NOT USE THE LEFT ARM. PATIENT CAN NOT MOVE LEFT SHOULDER. IS ONLY ABLE TO ABDUCT THE RIGHT ARM. THERE IS TENDERNESS IN THE LEFT SHOULDER WITH HYPERPATHIA, BANDS OF TISSUES, RESTRICTION OF MOVEMENT, AND PRESENCE OF TRIGGER POINTS. THERE IS SCAR APPROXIMATELY 4 INCHES IN LENGTH OVER THE TOP OF THE LEFT SHOULDER. LEFT ARM IS WEAKER AT FLEXION AND EXTENSION COMPARED TO THE RIGHT ARM. 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 ASSESSMENTS MYALGIA - M79.1 (PRIMARY) LEFT SHOULDER PAIN. NEUROPATHY. TREATMENT MYALGIA NOTES: WE DISCUSSED SEVERAL ISSUES WITH MR. MARTEL'S PAIN MANAGEMENT CASE. PATIENT IS TAKING GABAPENTIN FOR NEUROPATHIC PAIN; PENNSAID AND IBUPROFEN FOR SOMATIC PAIN. AFTER EXAMINING THE PATIENT HE IS A GOOD CANDIDATE FOR A TRIGGER POINT INJECTION IN THE LEFT SHOULDER, WE DISCUSSED THE RISK, BENEFITS, AND ALTERNATIVES AND THE PATIENT WOULD LIKE TO PROCEED. PATIENT WILL BE BOOKED PENDING APPROVAL. PATIENT WILL FOLLOW UP WITH ME IN 2 MONTHS. UTOX ORDER ON 05/30/2016 SHOWS CONSISTENT RESULTS WITH WHAT WAS PRESCRIBED FOR THE PATIENT. INSTRUCTIONS WERE GIVEN, QUESTIONS WERE ANSWERED, PATIENT REPORTS UNDERSTANDING AND AGREES WITH THE PLAN. I, JESÚS HERR, DOCUMENTED THE ABOVE INFORMATION ACTING A SCRIBE FOR DR. COLINDRES. I HAVE REVIEWED THE ABOVE DOCUMENT, WRITTEN BY JESÚS HERR SCRIBEyal AND I VERIFY THAT IT IS ACCURATE. OTHERS REFILL PENNSAID 1.5% DROPS, 1.5%, 10, TOPICALLY, FOUR TIMES DAILY NEEDED, 30 DAY(S), 1, REFILLS 2 REFILL IBUPROFEN TABLET, 800 MG, 1 TABLET WITH FOOD, ORALLY FOR PAIN, THREE TIMES DAILY NEEDED, 30 DAY(S), 60, REFILLS 2 REFILL GABAPENTIN CAPSULE, 300 MG, 1 CAPSULE, ORALLY, THREE TIMES DAILY, 30 DAY(S), 90, REFILLS 1 PROCEDURES PN WORKMANS' COMP OPINION IN YOUR OPINION, WAS THE INCIDENT THAT THE PATIENT DESCRIBED THE COMPETENT MEDICAL CAUSE OF THIS INJURY/ILLNESS? YES ARE THE PATIENT'S COMPLAINTS CONSISTENT WITH HIS/HER HISTORY OF THE INJURY/ILLNESS? YES IS THE PATIENT'S HISTORY OF THE INJURY/ILLNESS CONSISTENT WITH YOUR OBJECTIVE FINDING? YES WHAT IS THE PERCENTAGE OF TEMPORARY IMPAIRMENT? TOTAL = 100% IS THE PATIENT WORKING? NO DOCTOR ON SITE: CURTIS ABURTO MD PREVENTIVE MEDICINE TRIGGER POINT INJECTION INFORMATION REVIEWED WITH PT. PROCEDURE CODES FA211 ESTABILISHED PATIENT [facility] FACILITY CHARGE G8730 PAIN ASSESS POS TOOL F/U PLAN DOC G8427 DOC MEDS VERIFIED W/PT OR RE DISPOSITION & COMMUNICATION ELECTRONICALLY SIGNED BY CURTIS COLINDRES MD ON 07/30/2016 AT 03:27 PM EDT DISCLAIMER : THIS IS A VISIT SUMMARY EXTRACTED FROM THE [employer] CHART. IT IS NOT A COPY OF THE [employer] PROGRESS NOTE. MTDD
== END ==
LOC: M PAIN 12:30
PROVIDERS: ATTEND Anesthesiology
DX: G89.29 Other chronic pain (principal); M79.1 Myalgia; M25.512 Pain in left shoulder; Q05.9 Spina bifida, unspecified; G47.30 Sleep apnea, unspecified; Z79.899 Other long term (current) drug therapy

== ENCOUNTER → 2016-09-26 | Outpatient (CLI) | payer OTHER, MEDICAID, MEDICARE ==
--- NOTE | 2016-10-16 00:10 | ECWPNPC ---
PATIENT NAME: EFRA MARTEL : 1965 GENDER: MALE VISIT DATE: 09/26/2016 DISCHARGE DATE: 09/26/16 1358 VISIT LOCKED DATE TIME: PHYSICIAN: CURTIS COLINDRES RESOURCE: CURTIS COLINDRES REASON FOR APPOINTMENT 1. W/C L SHOULDER HISTORY OF PRESENT ILLNESS HISTORY OF PRESENT ILLNESS: PAIN THE PATIENT DESCRIBES THE PAIN... 50 YEAR OLD MALE PATIENT WITH HISTORY OF CHRONIC LEFT SHOULDER PAIN. PATIENT DESCRIBES THE PAIN ACHING, BURNING, SHARP, STABBING, TENDER, THROBBING, SORE, SHOOTING, AND HAVING IT ALL THE TIME WITH A PAIN SCORE OF 3/10 ON TODAY'S VISIT. 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 PATIENT REPORTS THAT HE HAS HAD THREE SURGERIES ON HIS LEFT SHOULDER. PATIENT REPORTS THAT HE HAS TRIED PHYSICAL THERAPY AND THAT ONLY MADE THE PAIN WORST, PATIENT STATES HE DOES SOME PHYSICAL THERAPY EXERCISES AT HOME TO TRY TO PREVENT HIS LEFT SHOULDER FROM LOCKING UP. PATIENT REPORTS OF PAIN IN THE LEFT SHOULDER RADIATING DOWN THE LEFT ARM TO HIS HANDS. PATIENT DENIES UNEXPLAINABLE WEIGHT LOSS, FEVER, CHILLS, NEW CHANGES ON HIS URINARY OR BOWEL CONTROL. FALL RISK SCREENING: SCREENING :NO FALLS IN THE PAST YEAR CURRENT MEDICATIONS TAKING PENNSAID 1.5% 1.5% DROPS 10 TOPICALLY FOUR TIMES DAILY NEEDED TAKING IBUPROFEN 800 MG TABLET 1 TABLET WITH FOOD ORALLY FOR PAIN THREE TIMES DAILY NEEDED TAKING GABAPENTIN 300 MG CAPSULE 1 CAPSULE ORALLY THREE TIMES DAILY TAKING OXYCODONE HCL 15 MG TABLET 1 TABLET NEEDED ORALLY EVERY 6 HRS PRN FOR PAIN MDD4 TAKING LYRICA 200 MG CAPSULE 1 CAPSULE ORALLY THREE TIMES A DAY FOR PAIN MDD3 NOT-TAKING PENNSAID 2 % SOLUTION 2 APPLICATIONS TO AFFECTED AREA TRANSDERMAL FOUR TIMES DAILY NEEDED FOR PAIN MEDICATION LIST REVIEWED AND RECONCILED WITH THE PATIENT PAST MEDICAL HISTORY SPINABIFIDA CHEST PAIN SLEEP APNEA ALLERGIES N.K.D.A. SURGICAL HISTORY NECK SURGERY 2001 NECK SURGERY 2010 FX WRIST RT RT CTR 3 LT SHOULDER SURGERY HOSPITALIZATION/MAJOR DIAGNOSTIC PROCEDURE SURGERY RELATED REVIEW OF SYSTEMS REVIEWED BY: PROVIDER: CURTIS COLINDRES MD . CONSTITUTIONAL: ANY CHANGE IN YOUR MEDICAL CONDITION? NO . CHILLS NO . FEVER NO . INFECTION: DO YOU HAVE NEW INFECTIONS? NO . DO YOU HAVE HISTORY OF MRSA? NO . MUSCULOSKELETAL: ANY NEW PATTERNS OF PAIN OR NUMBNESS? NO . GASTROENTEROLOGY: ANY NEW CHANGE IN BOWEL CONTROL? NO . GENITOURINARY: ANY NEW CHANGE IN BLADDER CONTROL? NO . IS THERE A CHANCE YOU COULD BE ? NO . HEMATOLOGY/LYMPH: DO YOU TAKE ANY BLOOD THINNERS? (FOR EXAMPLE- COUMADIN, PLAVIX, AGGRENOX, PLATEL, PRADAXA, OR XARELTO) NO . WHEN WAS YOUR LAST DOSE? DATE: TIME: . NEUROLOGY: HAVE YOU FALLEN IN THE PAST 6 MONTHS? NO . ANY NEW EXTREMITY NUMBNESS OR WEAKNESS? NO . CARDIOLOGY: DO YOU HAVE A PACEMAKER OR DEFIBRILLATOR? NO . RESPIRATORY: HAVE YOU BEEN SICK IN THE PAST WEEK? NO . FEVER NO . FLU LIKE SYMPTOMS? NO . COUGH NO . INTEGUMENTARY: DO YOU HAVE ANY RASHES OR OPEN SORES? NO . ALLERGIC/IMMUNO: ARE YOU ALLERGIC TO SHELLFISH OR IV DYE? NO . ANY NEW ALLERGIES? NO . PSYCHIATRIC: DO YOU HAVE THOUGHTS OF HURTING YOURSELF OR SOMEONE ELSE? NO . ARE YOU ABUSED, NEGLECTED, OR IN AN UNSAFE ENVIRONMENT? NO . ENDOCRINOLOGY: ARE YOU DIABETIC? NO . OTHER: DO YOU NEED ANY PRESCRIPTIONS? NO . IF YES, PLEASE LIST: ____ . ANY NEW PROBLEMS WITH YOUR MEDICATIONS? NO . WHEN DID YOU LAST EAT? ____ . WHEN DID YOU LAST DRINK? ____ . WHAT DID YOU LAST DRINK? ____ . NAME OF PERSON DRIVING YOU HOME? ____ . DO YOU HAVE ANY OTHER QUESTIONS OR CONCERNS NO . VITAL SIGNS WT 208 LBS, HT 68 IN, BMI 31.62 INDEX, BP 135/83 MM HG, HR 95 /MIN, RR 18 /MIN, TEMP 98.4 F, OXYGEN SAT % 96, SAFE IN ENV? (Y/N) Y, REVIEWED BY: EM. EXAMINATION : PATIENT IS ALERT O X 3 AND COOPERATIVE. PATIENT HAS DIFFICULTIES TAKING HIS SHIRT OFF FOR THE EXAMINATION, PATIENT IS ONLY ABLE TO USING THE RIGHT ARM AND CAN NOT USE THE LEFT ARM. PATIENT CAN NOT MOVE LEFT SHOULDER. IS ONLY ABLE TO ABDUCT THE RIGHT ARM. THERE IS TENDERNESS IN THE LEFT SHOULDER WITH HYPERPATHIA, BANDS OF TISSUES, RESTRICTION OF MOVEMENT, AND PRESENCE OF TRIGGER POINTS. THERE IS SCAR APPROXIMATELY 4 INCHES IN LENGTH OVER THE TOP OF THE LEFT SHOULDER. LEFT ARM IS WEAKER AT FLEXION AND EXTENSION COMPARED TO THE RIGHT ARM. 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 ASSESSMENTS MYALGIA - M79.1 (PRIMARY) LEFT SHOULDER PAIN. NEUROPATHY. TREATMENT MYALGIA NOTES: WE DISCUSSED SEVERAL ISSUES WITH MR. MARTEL'S PAIN MANAGEMENT CASE. PATIENT IS TAKING GABAPENTIN FOR NEUROPATHIC PAIN AND PENNSAID AND IBUPROFEN FOR SOMATIC PAIN. AFTER EXAMINING THE PATIENT HE IS A GOOD CANDIDATE FOR A TRIGGER POINT INJECTION IN THE LEFT SHOULDER, WE DISCUSSED THE RISK, BENEFITS, AND ALTERNATIVES AND THE PATIENT WOULD LIKE TO PROCEED. WE DISCUSSED MOVING FORWARD WITH A STELLATE GANGLION BUT AT THIS TIME THE PATIENT WOULD LIKE TO MOVE FORWARD WITH THE TRIGGER POINT INJECTIONS. WE BRIEFLY DISCUSSED THE DCS AND THE PATIENT WILL DO FURTHER RESEARCH. PATIENT WILL FOLLOW UP WITH ME IN 3 MONTHS. UTOX ORDER ON 05/30/2016 SHOWS CONSISTENT RESULTS WITH WHAT WAS PRESCRIBED FOR THE PATIENT. INSTRUCTIONS WERE GIVEN, QUESTIONS WERE ANSWERED, PATIENT REPORTS UNDERSTANDING AND AGREES WITH THE PLAN. I, JAIR LIEBERMAN, DOCUMENTED THE ABOVE INFORMATION ACTING A SCRIBE FOR DR. COLINDRES. I HAVE REVIEWED THE ABOVE DOCUMENT, WRITTEN BY JAIR SANDHU AND I VERIFY THAT IT IS ACCURATE. PROCEDURES PN WORKMANS' COMP OPINION IN YOUR OPINION, WAS THE INCIDENT THAT THE PATIENT DESCRIBED THE COMPETENT MEDICAL CAUSE OF THIS INJURY/ILLNESS? YES ARE THE PATIENT'S COMPLAINTS CONSISTENT WITH HIS/HER HISTORY OF THE INJURY/ILLNESS? YES IS THE PATIENT'S HISTORY OF THE INJURY/ILLNESS CONSISTENT WITH YOUR OBJECTIVE FINDING? YES WHAT IS THE PERCENTAGE OF TEMPORARY IMPAIRMENT? TOTAL = 100% IS THE PATIENT WORKING? NO DOCTOR ON SITE: CURTIS ABURTO MD PREVENTIVE MEDICINE PAIN CLINIC TEACHING: MEDICATIONS GABAPENTIN TO BE TAKEN ONLY AT NIGHT. PROCEDURE TEACHING REVIEWED TPI PRE PROCEDURE INSTRUCTIONS WITH PT WE NEED TO GET PRIOR AUTHORIZATION PRIOR TO BOOKING. PROCEDURE CODES FA211 ESTABILISHED PATIENT [facility] FACILITY CHARGE G8427 DOC MEDS VERIFIED W/PT OR RE G0108 PAIN ASSESS POS TOOL F/U PLAN DOC DISPOSITION & COMMUNICATION FOLLOW UP TPI AFTER APPOVAL ELECTRONICALLY SIGNED BY CURTIS COLINDRES MD ON 10/15/2016 AT 08:48 PM EDT DISCLAIMER : THIS IS A VISIT SUMMARY EXTRACTED FROM THE [employer] CHART. IT IS NOT A COPY OF THE [employer] PROGRESS NOTE. DAQUAN
== END ==
LOC: M PAIN 13:00
PROVIDERS: ATTEND Anesthesiology
DX: G89.29 Other chronic pain (principal); M25.512 Pain in left shoulder; M79.1 Myalgia; G47.30 Sleep apnea, unspecified; Z79.899 Other long term (current) drug therapy

== ENCOUNTER → 2016-09-26 | Outpatient (CLI) | payer MEDICARE, MEDICAID, OTHER ==
--- NOTE | 2016-10-25 01:05 | ECWPNPC ---
PATIENT NAME: EFRA MARTEL : 1965 GENDER: MALE VISIT DATE: 09/26/2016 DISCHARGE DATE: 09/26/16 1254 VISIT LOCKED DATE TIME: PHYSICIAN: HAFSA LOWERY RESOURCE: HAFSA LOWERY REASON FOR APPOINTMENT 1. BACK AND NECK HISTORY OF PRESENT ILLNESS HISTORY OF PRESENT ILLNESS: HERE FOR F/U OF PERSISTENT NECK AND LOW BACK PAIN .RATING PAIN VAS 3/10.DESCRIBES PAIN CONSTANT BURNING AND ACHING.CURRENTLY USING LYRICA 200MG TID AND OXYCODONE 15MG Q6H PRN PAIN.CONTINUES TO FIND CURRENT CHRONIC PAIN MEDICATION HELPFUL AT REDUCING PAIN AND KEEPING HIM COMFORTABLE.DENIES ADVERSE EFFECTS WITH MEDICATION. PAIN THE PATIENT DESCRIBES THE PAIN... THE PATIENT DESCRIBES THE PAIN... CURRENT MEDICATIONS TAKING PENNSAID 1.5% 1.5% DROPS 10 TOPICALLY FOUR TIMES DAILY NEEDED TAKING IBUPROFEN 800 MG TABLET 1 TABLET WITH FOOD ORALLY FOR PAIN THREE TIMES DAILY NEEDED TAKING GABAPENTIN 300 MG CAPSULE 1 CAPSULE ORALLY THREE TIMES DAILY TAKING OXYCODONE HCL 15 MG TABLET 1 TABLET NEEDED ORALLY EVERY 6 HRS PRN FOR PAIN MDD4 TAKING LYRICA 200 MG CAPSULE 1 CAPSULE ORALLY THREE TIMES A DAY FOR PAIN MDD3 NOT-TAKING PENNSAID 2 % SOLUTION 2 APPLICATIONS TO AFFECTED AREA TRANSDERMAL FOUR TIMES DAILY NEEDED FOR PAIN MEDICATION LIST REVIEWED AND RECONCILED WITH THE PATIENT PAST MEDICAL HISTORY SPINABIFIDA CHEST PAIN SLEEP APNEA ALLERGIES N.K.D.A. VITAL SIGNS WT 208 LBS, HT 68 IN, BMI 31.62 INDEX, BP 135/83 MM HG, HR 95 /MIN, RR 18 /MIN, TEMP 98.4 F, REVIEWED BY: NL. EXAMINATION GENERAL EXAMINATION: LUNGS:LUNG SOUNDS ARE CLEAR. HEART:HEART RATE REGULAR. MUSCULOSKELETAL:*, MUSCLE STRENGTH TESTING 5/5 BILATERAL LOWER EXTREMITIES, PALPATION: POSITIVE FOR PAIN OVER L/S SPINE. POSITIVE FOR PAIN OVER L/S PARASPINALS.CERVICAL VERTEBRAL SPINE TENDERNESS.ROJM NECK LIMITED DUE TO STIFFNESS.MUSCLE STRENGTH TESTING VIJAY EXTREMITIES 5/5.. DIAGNOSTIC: . ASSESSMENTS MYALGIA - M79.1 (PRIMARY) POSTLAMINECTOMY SYNDROME, NOT ELSEWHERE CLASSIFIED - M96.1 RADICULOPATHY, LUMBAR REGION - M54.16 TREATMENT MYALGIA REFILL OXYCODONE HCL TABLET, 15 MG, 1 TABLET NEEDED, ORALLY, EVERY 6 HRS PRN FOR PAIN MDD4, 30 DAY(S), 120, REFILLS 0 CONTINUE LYRICA CAPSULE, 200 MG, 1 CAPSULE, ORALLY, THREE TIMES A DAY FOR PAIN MDD3, 30 DAY(S), 90, REFILLS 2 NOTES: ISTOP REGISTRY REVIEWED AND DEMNOSTRATES COMPLLIANCE. BRINGS IN MEDICATIONS WHICH IS APPROPRIATE FOR WHAT WAS DISPENSED. RECENT URINE TOXICOLOGY REVIEWED. NO UNAUTHORIZED MEDICATIONS. NO ILLICIT SUBSTANCES AND PRESCRIBED MEDICATIONS WERE PRESENT. , RISKS AND BENEFITS OF NARCOTIC/OPIOD MEDICATIONS WERE REVIEWED WITH PATIENT - THIS INCLUDES BUT IS NOT LIMITED TO RISK OF DEPENDANCE/DEVELOPMENT OF ADDICTION, MOOD DISTURBANCE AND DEPRESSION, OSTEOPOROSIS, HORMONAL AND LABIDAL CHANGES, RESPIRATORY DEPRESSION AND . PATIENT IS ADVISED NOT TO DRIVE WHILE ON THESE MEDICATIONS. PROCEDURE CODES FA211 ESTABILISHED PATIENT [facility] CHARGE DISPOSITION & COMMUNICATION FOLLOW UP NEXT TIME ELECTRONICALLY SIGNED BY MARY PENA ON 10/24/2016 AT 01:10 PM EDT DISCLAIMER : THIS IS A VISIT SUMMARY EXTRACTED FROM THE [employer] CHART. IT IS NOT A COPY OF THE [employer] PROGRESS NOTE. MTDD
== END ==
LOC: M PAIN 12:00
PROVIDERS: ATTEND Nurse Practitioner Family
DX: M79.1 Myalgia (principal); M96.1 Postlaminectomy syndrome, not elsewhere classified; M54.16 Radiculopathy, lumbar region; G89.29 Other chronic pain; Z79.891 Long term (current) use of opiate analgesic; Z79.899 Other long term (current) drug therapy

== ENCOUNTER → 2017-01-15 | Outpatient (CLI) | payer MEDICARE, MEDICAID, OTHER | LOC: M PAIN 10:45 | DX: M54.40 Lumbago with sciatica, unspecified side (principal); M54.2 Cervicalgia; Z79.891 Long term (current) use of opiate analgesic; Z79.899 Other long term (current) drug therapy | CPT/HCPCS: G0463 ==

== ENCOUNTER → 2017-01-15 | Outpatient (CLI) | payer OTHER, MEDICAID, MEDICARE ==
--- NOTE | 2017-01-26 00:13 | ECWPNPC ---
PATIENT NAME: EFRA MARTEL : 1965 GENDER: MALE VISIT DATE: 01/15/2017 DISCHARGE DATE: 01/15/17 1552 VISIT LOCKED DATE TIME: PHYSICIAN: CURTIS COLINDRES RESOURCE: CURTIS COLINDRES REASON FOR APPOINTMENT 1. W/C LEFT SHOULDER HISTORY OF PRESENT ILLNESS HISTORY OF PRESENT ILLNESS: PAIN THE PATIENT DESCRIBES THE PAIN... 51 YEAR OLD MALE PATIENT WITH HISTORY OF CHRONIC LEFT SHOULDER PAIN. PATIENT DESCRIBES THE PAIN ACHING, BURNING, SHARP, STABBING, TENDER, THROBBING, SORE AND HAVING IT ALL THE TIME WITH A PAIN SCORE OF 5/10 TODAY. IN OCCASIONS PAIN CAN BE 10 OVER 10. 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 PATIENT REPORTS THAT HE HAS HAD THREE SURGERIES ON HIS LEFT SHOULDER. PATIENT REPORTS THAT HE HAS TRIED PHYSICAL THERAPY AND THAT ONLY MADE THE PAIN WORST, PATIENT STATES HE DOES SOME PHYSICAL THERAPY EXERCISES AT HOME TO TRY TO PREVENT HIS LEFT SHOULDER FROM LOCKING UP. PATIENT REPORTS OF PAIN IN THE LEFT SHOULDER RADIATING DOWN THE LEFT ARM TO HIS HANDS. CURRENTLY THE PATIENT IS USING IBUPROFEN, GABAPENTIN, AND PENNSAID AND REPORTS THE MEDICATION AIDING IN RELIEF AT THIS TIME BUT HE STILL HAS SEVERE PAIN. FALL RISK SCREENING: SCREENING :NO FALLS IN THE PAST YEAR CURRENT MEDICATIONS TAKING PENNSAID 1.5% 1.5% DROPS 10 TOPICALLY FOUR TIMES DAILY NEEDED TAKING IBUPROFEN 800 MG TABLET 1 TABLET WITH FOOD ORALLY FOR PAIN THREE TIMES DAILY NEEDED TAKING GABAPENTIN 300 MG CAPSULE 1 CAPSULE ORALLY THREE TIMES DAILY TAKING OXYCODONE HCL 15 MG TABLET 1 TABLET NEEDED ORALLY EVERY 6 HRS PRN FOR PAIN MDD4 TAKING LYRICA 200 MG CAPSULE 1 CAPSULE ORALLY THREE TIMES A DAY FOR PAIN MDD3 NOT-TAKING PENNSAID 2 % SOLUTION 2 APPLICATIONS TO AFFECTED AREA TRANSDERMAL FOUR TIMES DAILY NEEDED FOR PAIN MEDICATION LIST REVIEWED AND RECONCILED WITH THE PATIENT PAST MEDICAL HISTORY SPINABIFIDA CHEST PAIN SLEEP APNEA ALLERGIES N.K.D.A. SURGICAL HISTORY NECK SURGERY 2000 NECK SURGERY 2010 FX WRIST RT RT CTR 3 LT SHOULDER SURGERY SOCIAL HISTORY GENERAL: TOBACCO USE ARE YOU A:NONSMOKER ALCOHOL SCREENING DID YOU HAVE A DRINK CONTAINING ALCOHOL IN THE PAST YEAR?YES HOW OFTEN DID YOU HAVE A DRINK CONTAINING ALCOHOL IN THE PAST YEAR?MONTHLY OR LESS (1 POINT) POINTS1 INTERPRETATIONNEGATIVE CAFFEINE CAFFEINE USE?YES HOW OFTEN AND HOW MUCH? COFFEE AND MOUNTAIN DEW BUDDHISM [id number] TEMPLE LANGUAGE LANGUAGES SPOKEN:UKRAINIAN LEARNING BARRIERS / SPECIAL NEEDS BARRIERS TO LEARNING?NO READINESS TO LEARN?YES LEARNING PREFERENCES?NO LEARNING CAPABILITIES PRESENT?YES PAIN CLINIC PFS, CLERGY, PUBLIC HEALTH REFERRALS PFS REFERRAL NEEDED?NO CLERGY REFERRAL NEEDED?NO PUBLIC HEALTH REFERRAL NEEDED?NO WAS THE PROVIDER NOTIFIED OF ANY PERTINENT INFO?NO HAS THE PATIENT BEEN EDUCATED REGARDING HIS/HER PLAN OF CARE?YES HAS THE PATIENT BEEN EDUCATED REGARDING PAIN, THE RISK FOR PAIN, THE IMPORTANCE OF EFFECTIVE PAIN MANAGEMENT, AND THE PAIN ASSESSMENT PROCESS?YES PATIENT: ____. ADVANCE DIRECTIVES HEALTH CARE PROXY?NO WOULD YOU LIKE MORE INFORMATION?NO HOSPITALIZATION/MAJOR DIAGNOSTIC PROCEDURE SURGERY RELATED REVIEW OF SYSTEMS REVIEWED BY: PROVIDER: CURTIS COLINDRES MD . CONSTITUTIONAL: ANY CHANGE IN YOUR MEDICAL CONDITION? NO . CHILLS NO . FEVER NO . INFECTION: DO YOU HAVE NEW INFECTIONS? NO . DO YOU HAVE HISTORY OF MRSA? NO . MUSCULOSKELETAL: ANY NEW PATTERNS OF PAIN OR NUMBNESS? NO . GASTROENTEROLOGY: ANY NEW CHANGE IN BOWEL CONTROL? NO . GENITOURINARY: ANY NEW CHANGE IN BLADDER CONTROL? NO . IS THERE A CHANCE YOU COULD BE ? NO . HEMATOLOGY/LYMPH: DO YOU TAKE ANY BLOOD THINNERS? (FOR EXAMPLE- COUMADIN, PLAVIX, AGGRENOX, PLATEL, PRADAXA, OR XARELTO) NO . WHEN WAS YOUR LAST DOSE? DATE: TIME: . NEUROLOGY: HAVE YOU FALLEN IN THE PAST 6 MONTHS? NO . ANY NEW EXTREMITY NUMBNESS OR WEAKNESS? NO . CARDIOLOGY: DO YOU HAVE A PACEMAKER OR DEFIBRILLATOR? NO . RESPIRATORY: HAVE YOU BEEN SICK IN THE PAST WEEK? NO . FEVER NO . FLU LIKE SYMPTOMS? NO . COUGH NO . INTEGUMENTARY: DO YOU HAVE ANY RASHES OR OPEN SORES? NO . ALLERGIC/IMMUNO: ARE YOU ALLERGIC TO SHELLFISH OR IV DYE? NO . ANY NEW ALLERGIES? NO . PSYCHIATRIC: DO YOU HAVE THOUGHTS OF HURTING YOURSELF OR SOMEONE ELSE? NO . ARE YOU ABUSED, NEGLECTED, OR IN AN UNSAFE ENVIRONMENT? NO . ENDOCRINOLOGY: ARE YOU DIABETIC? NO . OTHER: DO YOU NEED ANY PRESCRIPTIONS? YES, PENSAID LOTION FOR LEFT SHOULDER, GABAPENTIN, IBUPROFEN . IF YES, PLEASE LIST: ____ . ANY NEW PROBLEMS WITH YOUR MEDICATIONS? NO . WHEN DID YOU LAST EAT? ____ . WHEN DID YOU LAST DRINK? ____ . WHAT DID YOU LAST DRINK? ____ . NAME OF PERSON DRIVING YOU HOME? ____ . DO YOU HAVE ANY OTHER QUESTIONS OR CONCERNS NO . VITAL SIGNS WT 211.8 LBS, HT 68 IN, BMI 32.20 INDEX, BP 147/90 MM HG, HR 104 /MIN, RR 18 /MIN, TEMP 98.5 F, OXYGEN SAT % 94%, NA INITIALS TL 1427, REVIEWED BY: EM. EXAMINATION : PATIENT IS ALERT O X 3 AND COOPERATIVE. PATIENT HAS DIFFICULTIES TAKING HIS SHIRT OFF FOR THE EXAMINATION, PATIENT IS ONLY ABLE TO USING THE RIGHT ARM AND CAN NOT USE THE LEFT ARM. PATIENT CAN NOT MOVE LEFT SHOULDER. IS ONLY ABLE TO ABDUCT THE RIGHT ARM. LEFT ARM IS WEAKER THEN THE RIGHT. LEFT HAND ACID CLEANER IS WEAKER THEN THE RIGHT. THERE IS TENDERNESS IN THE LEFT SHOULDER WITH HYPERPATHIA, BANDS OF TISSUES, RESTRICTION OF MOVEMENT, AND PRESENCE OF TRIGGER POINTS. THERE IS SCAR APPROXIMATELY 4 INCHES IN LENGTH OVER THE TOP OF THE LEFT SHOULDER. 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 TREATMENT MYALGIA NOTES: WE DISCUSSED SEVERAL ISSUES WITH MR. MARTEL'S PAIN MANAGEMENT CASE. PATIENT IS TAKING GABAPENTIN FOR THE NEUROPATHIC PAIN, PENNSAID DROPS FOR THE SOMATIC PAIN, AND IBUPROFEN FOR SOMATIC PAIN WELL INFLAMMATION. I WOULD LIKE THE PATIENT TO INCREASE THE GABAPENTIN TO 400 MG AT NIGHT DUE TO THE PATIENT GETTING RELIEF FROM THE MEDICATION AND TO HELP HIM WITH THE PAIN DURING THE NIGHT. AT THIS TIME THE PATIENT DOES NOT WANT TO MOVE FORWARD WITH INTERVENTIONS THEY HAVE NOT WORK FOR HIM IN THE PAST. HE USE THE MEDICATIONS TO KEEP HIMSELF FUNCTIONAL AND TO BE ABLE TO PERFORMED ACTIVITIES OF DAILY LIVING .PATIENT WILL FOLLOW UP IN 3 MONTHS. INSTRUCTIONS WERE GIVEN, QUESTIONS WERE ANSWERED, PATIENT REPORTS UNDERSTANDING AND AGREES WITH THE PLAN. I, JAIR LIEBERMAN, DOCUMENTED THE ABOVE INFORMATION ACTING A SCRIBE FOR DR. COLINDRES. I HAVE REVIEWED THE ABOVE DOCUMENT, WRITTEN BY JAIR SANDHU AND I VERIFY THAT IT IS ACCURATE. OTHERS REFILL PENNSAID 1.5% DROPS, 1.5%, 10, TOPICALLY, FOUR TIMES DAILY NEEDED, 30 DAY(S), 1, REFILLS 2 REFILL IBUPROFEN TABLET, 800 MG, 1 TABLET WITH FOOD, ORALLY FOR PAIN, TWICE DAILY NEEDED MDD2, 30 DAY(S), 60, REFILLS 2 REFILL GABAPENTIN CAPSULE, 300 MG, 1 CAPSULE, ORALLY, QID FOR PAIN MDD4, 30 DAY(S), 120, REFILLS 1 START GABAPENTIN CAPSULE, 400 MG, 1 CAPSULE, ORALLY FOR PAIN, BEFORE BEDTIME, 30 DAY(S), 30, REFILLS 1 PROCEDURES PN WORKMANS' COMP OPINION IN YOUR OPINION, WAS THE INCIDENT THAT THE PATIENT DESCRIBED THE COMPETENT MEDICAL CAUSE OF THIS INJURY/ILLNESS? YES ARE THE PATIENT'S COMPLAINTS CONSISTENT WITH HIS/HER HISTORY OF THE INJURY/ILLNESS? YES IS THE PATIENT'S HISTORY OF THE INJURY/ILLNESS CONSISTENT WITH YOUR OBJECTIVE FINDING? YES WHAT IS THE PERCENTAGE OF TEMPORARY IMPAIRMENT? TOTAL = 100% IS THE PATIENT WORKING? NO DOCTOR ON SITE: CURTIS ABURTO MD PROCEDURE CODES FA211 ESTABILISHED PATIENT [facility] FACILITY CHARGE G8427 DOC MEDS VERIFIED W/PT OR RE G8730 PAIN ASSESS POS TOOL F/U PLAN DOC DISPOSITION & COMMUNICATION FOLLOW UP 3 MONTHS ELECTRONICALLY SIGNED BY CURTIS COLINDRES MD ON 01/25/2017 AT 08:58 AM EST DISCLAIMER : THIS IS A VISIT SUMMARY EXTRACTED FROM THE [employer] CHART. IT IS NOT A COPY OF THE [employer] PROGRESS NOTE. MTDD
== END ==
LOC: M PAIN 13:45
PROVIDERS: ATTEND Anesthesiology
DX: G89.29 Other chronic pain (principal); M79.1 Myalgia; M25.512 Pain in left shoulder; G56.92 Unspecified mononeuropathy of left upper limb; G47.30 Sleep apnea, unspecified; Z79.1 Long term (current) use of non-steroidal anti-inflammatories (NSAID); Z79.891 Long term (current) use of opiate analgesic; Z79.899 Other long term (current) drug therapy

== ENCOUNTER → 2017-03-15 | Outpatient (CLI) | payer OTHER, MEDICAID, MEDICARE | LOC: M PAIN 08:45 | DX: M25.512 Pain in left shoulder (principal); G89.29 Other chronic pain; G56.92 Unspecified mononeuropathy of left upper limb; M79.1 Myalgia; Q05.9 Spina bifida, unspecified; Z79.891 Long term (current) use of opiate analgesic; Z79.899 Other long term (current) drug therapy | CPT/HCPCS: G0463 ==

== ENCOUNTER → 2017-05-09 | Outpatient (CLI) | payer MEDICARE, MEDICAID, OTHER | LOC: M PAIN 10:15 | DX: M54.40 Lumbago with sciatica, unspecified side (principal); Q05.9 Spina bifida, unspecified; G47.30 Sleep apnea, unspecified; Z79.891 Long term (current) use of opiate analgesic; Z79.899 Other long term (current) drug therapy | CPT/HCPCS: G0463 ==

== ENCOUNTER → 2017-05-09 | Outpatient (CLI) | payer OTHER, MEDICARE, MEDICAID | LOC: M PAIN 10:00 | DX: M25.512 Pain in left shoulder (principal); G89.29 Other chronic pain; G56.92 Unspecified mononeuropathy of left upper limb; M79.1 Myalgia; Z79.891 Long term (current) use of opiate analgesic | CPT/HCPCS: G0463 ==

== ENCOUNTER → 2017-09-11 | Outpatient (CLI) | payer MEDICARE, MEDICAID, OTHER | LOC: M PAIN 10:30 | DX: M54.40 Lumbago with sciatica, unspecified side (principal); M54.2 Cervicalgia; G47.30 Sleep apnea, unspecified; Q05.9 Spina bifida, unspecified; Z79.899 Other long term (current) drug therapy | CPT/HCPCS: G0463 ==

== ENCOUNTER → 2017-09-11 | Outpatient (CLI) | payer OTHER, MEDICAID, MEDICARE | LOC: M PAIN 10:45 | DX: M25.512 Pain in left shoulder (principal); G89.29 Other chronic pain; Q05.9 Spina bifida, unspecified; G47.30 Sleep apnea, unspecified; Z79.899 Other long term (current) drug therapy | CPT/HCPCS: G0463 ==

== ENCOUNTER → 2017-09-27 | Outpatient (CLI) | payer MEDICARE, OTHER, MEDICAID ==
[~2017-09-27] MED LIST: BUPIVACAINE HCL 0.25% 10 ML VIAL As Ordered; BUPIVACAINE HCL 0.25% 30 ML VIAL As Ordered; TRIAMCINOLONE ACETONIDE SUSP 40 MG/ML VIAL (J3301) As Ordered
== END ==
LOC: M PAIN 10:15
DX: G89.29 Other chronic pain (principal); M79.1 Myalgia; Z79.891 Long term (current) use of opiate analgesic; Z79.899 Other long term (current) drug therapy
CPT/HCPCS: J3301

== ENCOUNTER → 2017-11-19 | Outpatient (CLI) | payer OTHER, MEDICAID, MEDICARE | LOC: M PAIN 09:30 | DX: M25.512 Pain in left shoulder (principal); Z79.891 Long term (current) use of opiate analgesic; Z79.899 Other long term (current) drug therapy | CPT/HCPCS: G0463 ==

== ENCOUNTER → 2017-11-19 | Outpatient (CLI) | payer MEDICARE, MEDICAID | LOC: M PAIN 09:00 | DX: M47.897 Other spondylosis, lumbosacral region (principal); Z79.891 Long term (current) use of opiate analgesic; Z79.899 Other long term (current) drug therapy | CPT/HCPCS: G0463 ==

== ENCOUNTER → 2018-02-13 | Outpatient (CLI) | payer OTHER, MEDICAID, MEDICARE ==
--- NOTE | 2018-03-01 23:45 | ECWPNPC ---
PATIENT NAME: EFRA MARTEL : 1965 GENDER: MALE VISIT DATE: 02/13/2018 DISCHARGE DATE: 02/13/18 1100 VISIT LOCKED DATE TIME: PHYSICIAN: CURTIS COLINDRES MD RESOURCE: CURTIS COLINDRES MD REASON FOR APPOINTMENT 1. WC SHOULDER HISTORY OF PRESENT ILLNESS HISTORY OF PRESENT ILLNESS: PAIN THE PATIENT DESCRIBES THE PAIN... 52 YEAR OLD MALE PATIENT WITH A HISTORY OF CHRONIC LEFT SHOULDER PAIN. THE PATIENT DESCRIBES THE PAIN ACHING, BURNING, SORE, TENDER, AND CONTINUOUS WITH A PAIN SCORE OF 1-7/10 DEPENDING ON PHYSICAL ACTIVITY. 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 THE PATIENT SAYS THAT HE HAS TRIED PHYSICAL THERAPY IN THE PAST, BUT IT MADE HIS PAIN WORSE. THE PATIENT IS CURRENTLY USING IBUPROFEN, GABAPENTIN, AND PENNSAID TO AID IN HIS PAIN RELIEF AND SAYS THAT THE USE OF THESE MEDICATIONS ALLOWS HIM TO REMAIN MOBILE AND FUNCTIONAL. THE PATIENT STATES THAT HE IS UNABLE TO SLEEP IN HIS BED AND HAS TO SLEEP IN A CHAIR DUE TO THIS PAIN. PATIENT DENIES UNEXPLAINABLE WEIGHT LOSS, FEVER, CHILLS, NEW CHANGES ON HIS URINARY OR BOWEL CONTROL. FALL RISK SCREENING: SCREENING :NO FALLS IN THE PAST YEAR CURRENT MEDICATIONS TAKING TIZANIDINE HCL 2 MG TABLET 1 TABLET NEEDED ORALLY FOR SPSMS AND PAIN BEFORE BEDTIME MAY REPEAT IN 4 HRS MDD2 TAKING PENNSAID 1.5% 1.5% DROPS 10 TOPICALLY FOUR TIMES DAILY NEEDED TAKING GABAPENTIN 400 MG CAPSULE 1 CAPSULE ORALLY FOR PAIN BEFORE BEDTIME TAKING IBUPROFEN 800 MG TABLET 1 TABLET WITH FOOD ORALLY FOR PAIN TWICE DAILY NEEDED MDD2 TAKING OXYCODONE HCL 15 MG TABLET 1 TABLET NEEDED ORALLY EVERY 6 HRS PRN FOR PAIN MDD4 TAKING LYRICA 200 MG CAPSULE 1 CAPSULE ORALLY THREE TIMES A DAY FOR PAIN MDD3 NOT-TAKING PENNSAID 2 % SOLUTION 2 APPLICATIONS TO AFFECTED AREA TRANSDERMAL FOUR TIMES DAILY NEEDED FOR PAIN NOT-TAKING GABAPENTIN 300 MG CAPSULE 1 CAPSULE ORALLY QID FOR PAIN MDD4 MEDICATION LIST REVIEWED AND RECONCILED WITH THE PATIENT PAST MEDICAL HISTORY SPINABIFIDA CHEST PAIN SLEEP APNEA ALLERGIES N.K.D.A. SURGICAL HISTORY NECK SURGERY 2000 NECK SURGERY 2010 FX WRIST RT RT CTR 3 LT SHOULDER SURGERY FAMILY HISTORY FATHER: ALIVE, DIAGNOSED WITH DIABETES, HYPERTENSION MOTHER: ALIVE, DIAGNOSED WITH DIABETES, HYPERTENSION, STROKE, CANCER 1 BROTHER(S) , 3 SISTER(S) . 1 SON(S) , 2 DAUGHTER(S) - HEALTHY. BROTHER - GUN SHOT WOUND; SISTERS HEALTHY. SOCIAL HISTORY GENERAL: TOBACCO USE ARE YOU A:NONSMOKER ALCOHOL SCREENING DID YOU HAVE A DRINK CONTAINING ALCOHOL IN THE PAST YEAR?YES HOW OFTEN DID YOU HAVE A DRINK CONTAINING ALCOHOL IN THE PAST YEAR?MONTHLY OR LESS (1 POINT) POINTS1 INTERPRETATIONNEGATIVE RECREATIONAL DRUG USE DRUG USE?NO CAFFEINE CAFFEINE USE?YES HOW OFTEN AND HOW MUCH? COFFEE AND MOUNTAIN DEW ADVENTISM [id number] BAPTISM LANGUAGE LANGUAGES SPOKEN:MOZAMBICAN LEARNING BARRIERS / SPECIAL NEEDS BARRIERS TO LEARNING?NO READINESS TO LEARN?YES LEARNING PREFERENCES?NO LEARNING CAPABILITIES PRESENT?YES PAIN CLINIC PFS, CLERGY, PUBLIC HEALTH REFERRALS PFS REFERRAL NEEDED?NO CLERGY REFERRAL NEEDED?NO PUBLIC HEALTH REFERRAL NEEDED?NO WAS THE PROVIDER NOTIFIED OF ANY PERTINENT INFO?NO HAS THE PATIENT BEEN EDUCATED REGARDING HIS/HER PLAN OF CARE?YES HAS THE PATIENT BEEN EDUCATED REGARDING PAIN, THE RISK FOR PAIN, THE IMPORTANCE OF EFFECTIVE PAIN MANAGEMENT, AND THE PAIN ASSESSMENT PROCESS?YES ADVANCE DIRECTIVE ADVANCE DIRECTIVE DISCUSSED WITH PATIENT:YES DECLINED INFORMATION REVIEWED 05/09/17 1100 BVREVIEWED WITH PATIENT 11/19/17 0927 JSREVIEWED WITH PATIENT 11/19/17 0939 JS. HOSPITALIZATION/MAJOR DIAGNOSTIC PROCEDURE SURGERY RELATED REVIEW OF SYSTEMS REVIEWED BY: PROVIDER: CURTIS COLINDRES MD . CONSTITUTIONAL: ANY CHANGE IN YOUR MEDICAL CONDITION? NO . CHILLS NO . FEVER NO . INFECTION: DO YOU HAVE NEW INFECTIONS? NO . DO YOU HAVE HISTORY OF MRSA? NO . MUSCULOSKELETAL: ANY NEW PATTERNS OF PAIN OR NUMBNESS? NO . GASTROENTEROLOGY: ANY NEW CHANGE IN BOWEL CONTROL? NO . GENITOURINARY: ANY NEW CHANGE IN BLADDER CONTROL? NO . IS THERE A CHANCE YOU COULD BE ? NO . HEMATOLOGY/LYMPH: DO YOU TAKE ANY BLOOD THINNERS? (FOR EXAMPLE- COUMADIN, PLAVIX, AGGRENOX, PLATEL, PRADAXA, OR XARELTO) NO . WHEN WAS YOUR LAST DOSE? DATE: TIME: . NEUROLOGY: HAVE YOU FALLEN IN THE PAST 6 MONTHS? NO . ANY NEW EXTREMITY NUMBNESS OR WEAKNESS? NO . CARDIOLOGY: DO YOU HAVE A PACEMAKER OR DEFIBRILLATOR? NO . RESPIRATORY: HAVE YOU BEEN SICK IN THE PAST WEEK? NO . FEVER NO . FLU LIKE SYMPTOMS? NO . COUGH NO . INTEGUMENTARY: DO YOU HAVE ANY RASHES OR OPEN SORES? NO . ALLERGIC/IMMUNO: ARE YOU ALLERGIC TO SHELLFISH OR IV DYE? NO . ANY NEW ALLERGIES? NO . PSYCHIATRIC: DO YOU HAVE THOUGHTS OF HURTING YOURSELF OR SOMEONE ELSE? NO . ARE YOU ABUSED, NEGLECTED, OR IN AN UNSAFE ENVIRONMENT? NO . ENDOCRINOLOGY: ARE YOU DIABETIC? NO . OTHER: DO YOU NEED ANY PRESCRIPTIONS? NO . IF YES, PLEASE LIST: ____ . ANY NEW PROBLEMS WITH YOUR MEDICATIONS? NO . WHEN DID YOU LAST EAT? ____ . WHEN DID YOU LAST DRINK? ____ . WHAT DID YOU LAST DRINK? ____ . NAME OF PERSON DRIVING YOU HOME? ____ . DO YOU HAVE ANY OTHER QUESTIONS OR CONCERNS NO . VITAL SIGNS WT 217 LBS, HT 68 IN, BMI 32.99 INDEX, BP 154/69 MM HG, HR 84 /MIN, RR 18 /MIN, TEMP 99.9 F, OXYGEN SAT % 98%, NA INITIALS AW 0929, REVIEWED BY: EM. EXAMINATION GENERAL EXAMINATION: PATIENT IS ALERT O X 3 AND COOPERATIVE. PATIENT IS HOLDING HIS ARM WITH HIS RIGHT HAND. SWELLING OVER HIS LEFT HAND. PATIENT CAN ABDUCT THE RIGHT ARM TO SHOULDER LEVEL AND THE LEFT ARM TO SHOULDER LEVEL WITH DIFFICULTY. HAND SUPERVISOR OF OFFICIALS OVER THE LEFT SIDE IS REDUCED. PRESENCE OF TRIGGER POINTS AND BANDS OF TISSUE WITH RESTRICTION OF MOVEMENT OF THE SHOULDER. ASSESSMENTS PAIN IN LEFT SHOULDER - M25.512 (PRIMARY) OTHER CHRONIC PAIN - G89.29 NEURALGIA OF LEFT UPPER EXTREMITY - M79.2 MYALGIA, OTHER SITE - M79.18 TREATMENT PAIN IN LEFT SHOULDER CLINICAL NOTES: WE DISCUSSED SEVERAL ISSUES WITH MR. MARTEL'S PAIN MANAGEMENT CASE. I WOULD LIKE TO REQUEST AN INTERFERENTIAL TENS UNIT TO SEE IF THAT WILL HELP WITH THE LEFT SHOULDER NEURALGIA. I WOULD LIKE THE PATIENT TO HAVE PHYSICAL THERAPY TWO TIMES PER WEEK FOR ONE WEEK TO TEACH THE PATIENT HOW TO PROPERLY USE THE TENS UNIT. THE PATIENT WILL CONTINUE WITH THE SAME MEDICATION REGIMENT BECAUSE IT HAS BEEN CONTROLLING HIS PAIN. THE PATIENT WILL FOLLOW UP IN 3 MONTHS. INSTRUCTIONS WERE GIVEN, QUESTIONS WERE ANSWERED, PATIENT REPORTS UNDERSTANDING AND AGREES WITH THE PLAN. I, BERNA WATERS, DOCUMENTED THE ABOVE INFORMATION ACTING A SCRIBE FOR DR. COLINDRES. I HAVE REVIEWED THE ABOVE DOCUMENT, WRITTEN BY BERNA SANDHU AND I VERIFY THAT IT IS ACCURATE. PROCEDURES PN WORKMANS' COMP OPINION IN YOUR OPINION, WAS THE INCIDENT THAT THE PATIENT DESCRIBED THE COMPETENT MEDICAL CAUSE OF THIS INJURY/ILLNESS? YES ARE THE PATIENT'S COMPLAINTS CONSISTENT WITH HIS/HER HISTORY OF THE INJURY/ILLNESS? YES IS THE PATIENT'S HISTORY OF THE INJURY/ILLNESS CONSISTENT WITH YOUR OBJECTIVE FINDING? YES WHAT IS THE PERCENTAGE OF TEMPORARY IMPAIRMENT? MODERATE TO MARKED = 66.7% IS THE PATIENT WORKING? NO DOCTOR ON SITE: CURTIS ABURTO MD PROCEDURE CODES FA211 ESTABILISHED PATIENT [facility] FACILITY CHARGE G8427 CURRENT MEDS W/DOSAGES DOCUMENTED G8730 PAIN ASSESS POS TOOL F/U PLAN DOC DISPOSITION & COMMUNICATION FOLLOW UP 3 MONTHS ELECTRONICALLY SIGNED BY CURTIS COLINDRES MD, ON 03/01/2018 AT 08:22 PM EST DISCLAIMER : THIS IS A VISIT SUMMARY EXTRACTED FROM THE [employer] CHART. IT IS NOT A COPY OF THE [employer] PROGRESS NOTE. DAQUAN
== END ==
LOC: M PAIN 09:15
PROVIDERS: ATTEND Anesthesiology
DX: M25.512 Pain in left shoulder (principal); G89.29 Other chronic pain; M79.2 Neuralgia and neuritis, unspecified; M79.18 Myalgia, other site; G47.30 Sleep apnea, unspecified; Q05.9 Spina bifida, unspecified; Z79.899 Other long term (current) drug therapy

== ENCOUNTER → 2018-10-02 | Outpatient (CLI) | payer MEDICARE, MEDICAID ==
--- NOTE | 2018-10-03 23:40 | ECWPNPC ---
PATIENT NAME: EFRA MARTEL : 1965 GENDER: MALE VISIT DATE: 10/02/2018 DISCHARGE DATE: 10/02/18 1055 VISIT LOCKED DATE TIME: PHYSICIAN: TAMIA ACEVEDO RESOURCE: TAMIA ACEVEDO REASON FOR APPOINTMENT 1. MEDS-NON COMP HISTORY OF PRESENT ILLNESS HISTORY OF PRESENT ILLNESS: PAIN THE PATIENT DESCRIBES THE PAIN... 52 YEAR OLD MALE IN FOR CHRONIC PAIN FOLLOW UP. HE RATES HIS PAIN AT A 2/10 CURRENTLY AND DESCRIBES IT ACHING, SHARP, BURNING, TENDER, AND SHOOTING. FALL RISK SCREENING: SCREENING :NO FALLS REPORTED IN THE LAST YEAR CURRENT MEDICATIONS TAKING PENNSAID 1.5% 1.5% DROPS 10 TOPICALLY FOUR TIMES DAILY NEEDED TAKING TIZANIDINE HCL 2 MG TABLET 1 TABLET NEEDED ORALLY FOR SPSMS AND PAIN BEFORE BEDTIME MAY REPEAT IN 4 HRS MDD2 TAKING LYRICA 200 MG CAPSULE 1 CAPSULE ORALLY THREE TIMES A DAY FOR PAIN MDD3 TAKING OXYCODONE HCL 15 MG TABLET 1 TABLET NEEDED ORALLY Q8H PRN MDD3 TAKING IBUPROFEN 800 MG TABLET 1 TABLET WITH FOOD ORALLY FOR PAIN TWICE DAILY NEEDED MDD2 TAKING GABAPENTIN 400 MG CAPSULE 1 CAPSULE ORALLY FOR PAIN BEFORE BEDTIME TAKING DICLOFENAC SODIUM 1.5 % SOLUTION 40 DROPS TO AFFECTED AREA TRANSDERMAL NEEDED FOR PAIN FOUR TIMES A DAY NOT-TAKING GABAPENTIN 300 MG CAPSULE 1 CAPSULE ORALLY QID FOR PAIN MDD4 NOT-TAKING PENNSAID 2 % SOLUTION 2 APPLICATIONS TO AFFECTED AREA TRANSDERMAL FOUR TIMES DAILY NEEDED FOR PAIN MEDICATION LIST REVIEWED AND RECONCILED WITH THE PATIENT PAST MEDICAL HISTORY SPINABIFIDA CHEST PAIN SLEEP APNEA ALLERGIES N.K.D.A. SURGICAL HISTORY NECK SURGERY 2000 NECK SURGERY 2009 FX WRIST RT RT CTR 3 LT SHOULDER SURGERY FAMILY HISTORY FATHER: ALIVE, DIAGNOSED WITH DIABETES, HYPERTENSION MOTHER: ALIVE, HYPERTENSION, STROKE, CANCER, DIABETES 1 BROTHER(S) , 3 SISTER(S) . 1 SON(S) , 2 DAUGHTER(S) - HEALTHY. BROTHER - GUN SHOT WOUND; SISTERS HEALTHY. SOCIAL HISTORY GENERAL: TOBACCO USE ARE YOU A:NONSMOKER PAIN CLINIC PFS, CLERGY, PUBLIC HEALTH REFERRALS PFS REFERRAL NEEDED?NO CLERGY REFERRAL NEEDED?NO PUBLIC HEALTH REFERRAL NEEDED?NO WAS THE PROVIDER NOTIFIED OF ANY PERTINENT INFO?NO HAS THE PATIENT BEEN EDUCATED REGARDING HIS/HER PLAN OF CARE?YES HAS THE PATIENT BEEN EDUCATED REGARDING PAIN, THE RISK FOR PAIN, THE IMPORTANCE OF EFFECTIVE PAIN MANAGEMENT, AND THE PAIN ASSESSMENT PROCESS?YES CAFFEINE CAFFEINE USE?YES HOW OFTEN AND HOW MUCH? COFFEE AND MOUNTAIN DEW ADVANCE DIRECTIVE ADVANCE DIRECTIVE DISCUSSED WITH PATIENT:YES DECLINED INFORMATION JAIN [id number] ORIENTAL ORTHODOX LANGUAGE LANGUAGES SPOKEN:BRITISH ALCOHOL SCREENING DID YOU HAVE A DRINK CONTAINING ALCOHOL IN THE PAST YEAR?YES HOW OFTEN DID YOU HAVE A DRINK CONTAINING ALCOHOL IN THE PAST YEAR?MONTHLY OR LESS (1 POINT) POINTS1 INTERPRETATIONNEGATIVE RECREATIONAL DRUG USE DRUG USE?NO LEARNING BARRIERS / SPECIAL NEEDS BARRIERS TO LEARNING?NO READINESS TO LEARN?YES LEARNING PREFERENCES?NO LEARNING CAPABILITIES PRESENT?YES REVIEWED 05/09/17 1100 BVREVIEWED WITH PATIENT 11/19/17 0927 JSREVIEWED WITH PATIENT 11/19/17 0939 JSREVIEWED WITH PATEINT 10/02/18 1014 NLJ. HOSPITALIZATION/MAJOR DIAGNOSTIC PROCEDURE SURGERY RELATED REVIEW OF SYSTEMS REVIEWED BY: PROVIDER: KAI ACEVEDO BILL RECAPITULATION CLERK-C . CONSTITUTIONAL: ANY CHANGE IN YOUR MEDICAL CONDITION? NO . CHILLS NO . FEVER NO . INFECTION: DO YOU HAVE NEW INFECTIONS? NO . DO YOU HAVE HISTORY OF MRSA? NO . MUSCULOSKELETAL: ANY NEW PATTERNS OF PAIN OR NUMBNESS? NO- STATES HIS PAIN HASN'T INCREASED AT ALL, IS TREATED WELL WITH HIS MEDS . GASTROENTEROLOGY: ANY NEW CHANGE IN BOWEL CONTROL? NO . GENITOURINARY: ANY NEW CHANGE IN BLADDER CONTROL? NO . IS THERE A CHANCE YOU COULD BE ? NO . HEMATOLOGY/LYMPH: DO YOU TAKE ANY BLOOD THINNERS? (FOR EXAMPLE- COUMADIN, PLAVIX, AGGRENOX, PLATEL, PRADAXA, OR XARELTO) NO . WHEN WAS YOUR LAST DOSE? DATE: TIME: . NEUROLOGY: HAVE YOU FALLEN IN THE PAST 12 MONTHS? NO . ANY NEW EXTREMITY NUMBNESS OR WEAKNESS? NO . CARDIOLOGY: DO YOU HAVE A PACEMAKER OR DEFIBRILLATOR? NO . RESPIRATORY: HAVE YOU BEEN SICK IN THE PAST WEEK? NO . FEVER NO . FLU LIKE SYMPTOMS? NO . COUGH NO . INTEGUMENTARY: DO YOU HAVE ANY RASHES OR OPEN SORES? NO . ALLERGIC/IMMUNO: ARE YOU ALLERGIC TO IV DYE? NO . ANY NEW ALLERGIES? NO . PSYCHIATRIC: DO YOU HAVE THOUGHTS OF HURTING YOURSELF OR SOMEONE ELSE? NO . ARE YOU ABUSED, NEGLECTED, OR IN AN UNSAFE ENVIRONMENT? NO . ENDOCRINOLOGY: ARE YOU DIABETIC? NO . OTHER: DO YOU NEED ANY PRESCRIPTIONS? YES- STATES HE NEEDS OXYCODONE AND LYRICA . IF YES, PLEASE LIST: ____OXYCODONE, LYRICA . ANY NEW PROBLEMS WITH YOUR MEDICATIONS? NO . WHEN DID YOU LAST EAT? ____ . WHEN DID YOU LAST DRINK? ____ . WHAT DID YOU LAST DRINK? ____ . NAME OF PERSON DRIVING YOU HOME? ____ . DO YOU HAVE ANY OTHER QUESTIONS OR CONCERNS YES- WOULD LIKE OXYCODONE INCREASED BACK TO MDD4, HE WAS DECREASED TO MDD 3 DUE TO NOT BEING SEEN SINCE 02/2018 . VITAL SIGNS WT 215.6 LBS, HT 68 IN, BMI 32.78 INDEX, BP 169/99 MM HG, HR 81 /MIN, RR 18 /MIN, TEMP 97.1 F, OXYGEN SAT % 99%, SAFE IN ENV? (Y/N) YES, NA INITIALS ID 09:[id number], REVIEWED BY: JOE. EXAMINATION GENERAL EXAMINATION: GENERALNO ACUTE DISTRESS, WELL NOURISHED AND HYDRATED. PSYCHAPPROPRIATE MOOD AND AFFECT . LUNGS:CLEAR TO AUSCULTATION BILATERALLY, NO WHEEZES, RHONCHI, RALES. HEART:NO MURMURS, REGULAR RATE AND RHYTHM. ASSESSMENTS LUMBAGO OF MULTIPLE SITES IN SPINE WITH SCIATICA - M54.40 (PRIMARY) TREATMENT LUMBAGO OF MULTIPLE SITES IN SPINE WITH SCIATICA REFILL OXYCODONE HCL TABLET, 15 MG, 1 TABLET NEEDED, ORALLY, Q8H PRN MDD4, 30 DAYS, 120, REFILLS 0 REFILL LYRICA CAPSULE, 200 MG, 1 CAPSULE, ORALLY, THREE TIMES A DAY FOR PAIN MDD3, 30 DAY(S), 90, REFILLS 0 CLINICAL NOTES: 52 YEAR OLD MALE IN FOR CHRONIC PAIN FOLLOW UP. HE STATES HE HAS BEEN FIGHTING WITH WORKERS COMP THEY HAVEN'T BEEN PAYING HIM SO HE HAS HAD NO MONEY TO MAKE IT TO HIS APPT'S. HE FURTHER STATES THAT HAS SINCE BEEN CLEARED UP AND HE SHOULD HAVE NO TROUBLE MAKING FUTURE APPT'S. GIVEN PRESENTING SYMPTOMS AND RESULTS OF PHYSICAL EXAMINATION RECOMMENDED CONTINUATION OF CURRENT MEDICATION REGIMEN, RETURNING TO MDD OF 4, AND FOLLOW UP IN 3 MONTHS. PATIENT HAS EXPRESSED UNDERSTANDING OF AND WAS IN AGREEMENT WITH TREATMENT PLAN. GIVEN TIME TO ASK QUESTIONS AND EXPRESS CONCERNS. , ISTOP REGISTRY REVIEWED AND DEMONSTRATES COMPLLIANCE. (REF _#[id number] ) BRINGS IN MEDICATIONS WHICH IS APPROPRIATE FOR WHAT WAS DISPENSED. RECENT URINE TOXICOLOGY REVIEWED. NO UNAUTHORIZED MEDICATIONS. NO ILLICIT SUBSTANCES AND PRESCRIBED MEDICATIONS WERE PRESENT. , RISKS AND BENEFITS OF NARCOTIC/OPIOD MEDICATIONS WERE REVIEWED WITH PATIENT - THIS INCLUDES BUT IS NOT LIMITED TO RISK OF DEPENDANCE/DEVELOPMENT OF ADDICTION, MOOD DISTURBANCE AND DEPRESSION, OSTEOPOROSIS, HORMONAL AND LABIDAL CHANGES, RESPIRATORY DEPRESSION AND . PATIENT IS ADVISED NOT TO DRIVE OR DRINK ALCOHOL WHILE ON THESE MEDICATIONS. PROCEDURE CODES FA211 ESTABILISHED PATIENT [facility] CHARGE DISPOSITION & COMMUNICATION FOLLOW UP 3 MONTHS (REASON: CHRONIC PAIN ) ELECTRONICALLY SIGNED BY MARY SEPULVEDA ON 10/03/2018 AT 08:49 AM EDT DISCLAIMER : THIS IS A VISIT SUMMARY EXTRACTED FROM THE [employer] CHART. IT IS NOT A COPY OF THE [employer] PROGRESS NOTE. DAQUAN
== END ==
LOC: M PAIN 10:00
PROVIDERS: ATTEND Family Medicine
DX: M54.40 Lumbago with sciatica, unspecified side (principal); G89.29 Other chronic pain; G47.30 Sleep apnea, unspecified; Z79.899 Other long term (current) drug therapy

== ENCOUNTER → 2019-01-23 | Outpatient (CLI) | payer MEDICARE, MEDICAID ==
--- NOTE | 2019-01-27 01:34 | ECWPNPC ---
PATIENT NAME: EFRA MARTEL : 1965 GENDER: MALE VISIT DATE: 01/23/2019 DISCHARGE DATE: 01/23/19 1243 VISIT LOCKED DATE TIME: PHYSICIAN: TAMIA ACEVEDO RESOURCE: TAMIA ACEVEDO REASON FOR APPOINTMENT 1. NON COMP CHRONIC PAIN HISTORY OF PRESENT ILLNESS HISTORY OF PRESENT ILLNESS: PAIN THE PATIENT DESCRIBES THE PAIN... 53-YEAR-OLD MALE IN FOR CHRONIC PAIN FOLLOW-UP. HE RATES HIS PAIN CURRENTLY AT A 3 OUT OF 10 AND DESCRIBES IT ACHING, BURNING, TENDER, SHARP, AND SHOOTING. HE FEELS MEDICATIONS ARE WORKING WELL AND DOES ADMIT TO FEELINGS OF BEING WOOZY WHEN HIS LYRICA WAS SWITCHED TO THE GENERIC VERSION. FALL RISK SCREENING: SCREENING :NO FALLS REPORTED IN THE LAST YEAR CURRENT MEDICATIONS TAKING DICLOFENAC SODIUM 1.5 % SOLUTION 40 DROPS TO AFFECTED AREA TRANSDERMAL NEEDED FOR PAIN FOUR TIMES A DAY TAKING TIZANIDINE HCL 2 MG TABLET 1 TABLET NEEDED ORALLY FOR SPSMS AND PAIN BEFORE BEDTIME MAY REPEAT IN 4 HRS MDD2 TAKING PENNSAID 1.5% 1.5% DROPS 10 TOPICALLY FOUR TIMES DAILY NEEDED TAKING GABAPENTIN 400 MG CAPSULE 1 CAPSULE ORALLY FOR PAIN BEFORE BEDTIME TAKING IBUPROFEN 800 MG TABLET 1 TABLET WITH FOOD ORALLY FOR PAIN TWICE DAILY NEEDED MDD2 TAKING OXYCODONE HCL 15 MG TABLET 1 TABLET NEEDED ORALLY Q8H PRN MDD4 TAKING LYRICA 200 MG CAPSULE 1 CAPSULE ORALLY THREE TIMES A DAY FOR PAIN MDD3 NOT-TAKING GABAPENTIN 300 MG CAPSULE 1 CAPSULE ORALLY QID FOR PAIN MDD4 NOT-TAKING PENNSAID 2 % SOLUTION 2 APPLICATIONS TO AFFECTED AREA TRANSDERMAL FOUR TIMES DAILY NEEDED FOR PAIN MEDICATION LIST REVIEWED AND RECONCILED WITH THE PATIENT PAST MEDICAL HISTORY SPINABIFIDA CHEST PAIN SLEEP APNEA ALLERGIES N.K.D.A. SURGICAL HISTORY NECK SURGERY 2000 NECK SURGERY 2009 FX WRIST RT RT CTR 3 LT SHOULDER SURGERY FAMILY HISTORY FATHER: ALIVE, DIAGNOSED WITH DIABETES, HYPERTENSION MOTHER: ALIVE, DIABETES, HYPERTENSION, UNSPECIFIED CEREBRAL ARTERY OCCLUSION WITH CEREBRAL INFARCTION, OTHER MALIGNANT NEOPLASM OF UNSPECIFIED SITE 1 BROTHER(S) , 3 SISTER(S) . 1 SON(S) , 2 DAUGHTER(S) - HEALTHY. BROTHER - GUN SHOT WOUND; SISTERS HEALTHY. SOCIAL HISTORY GENERAL: TOBACCO USE ARE YOU A:NONSMOKER PAIN CLINIC PFS, CLERGY, PUBLIC HEALTH REFERRALS PFS REFERRAL NEEDED?NO CLERGY REFERRAL NEEDED?NO PUBLIC HEALTH REFERRAL NEEDED?NO WAS THE PROVIDER NOTIFIED OF ANY PERTINENT INFO?NO HAS THE PATIENT BEEN EDUCATED REGARDING HIS/HER PLAN OF CARE?YES HAS THE PATIENT BEEN EDUCATED REGARDING PAIN, THE RISK FOR PAIN, THE IMPORTANCE OF EFFECTIVE PAIN MANAGEMENT, AND THE PAIN ASSESSMENT PROCESS?YES CAFFEINE CAFFEINE USE?YES HOW OFTEN AND HOW MUCH? COFFEE AND MOUNTAIN DEW ADVANCE DIRECTIVE ADVANCE DIRECTIVE DISCUSSED WITH PATIENT:YES DECLINED INFORMATION CHRISTIAN [id number] YAZIDISM LANGUAGE LANGUAGES SPOKEN:TAJIK ALCOHOL SCREENING DID YOU HAVE A DRINK CONTAINING ALCOHOL IN THE PAST YEAR?YES HOW OFTEN DID YOU HAVE A DRINK CONTAINING ALCOHOL IN THE PAST YEAR?MONTHLY OR LESS (1 POINT) POINTS1 INTERPRETATIONNEGATIVE RECREATIONAL DRUG USE DRUG USE?NO LEARNING BARRIERS / SPECIAL NEEDS BARRIERS TO LEARNING?NO READINESS TO LEARN?YES LEARNING PREFERENCES?NO LEARNING CAPABILITIES PRESENT?YES REVIEWED 05/09/17 1100 BVREVIEWED WITH PATIENT 11/19/17 0927 JSREVIEWED WITH PATIENT 11/19/17 0939 JSREVIEWED WITH PATEINT 10/02/18 1014 NLJ. HOSPITALIZATION/MAJOR DIAGNOSTIC PROCEDURE SURGERY RELATED REVIEW OF SYSTEMS REVIEWED BY: PROVIDER: KAI HERNANDEZ-C . CONSTITUTIONAL: ANY CHANGE IN YOUR MEDICAL CONDITION? NO . CHILLS NO . FEVER NO . INFECTION: DO YOU HAVE NEW INFECTIONS? NO . DO YOU HAVE HISTORY OF MRSA? NO . MUSCULOSKELETAL: ANY NEW PATTERNS OF PAIN OR NUMBNESS? NO . GASTROENTEROLOGY: ANY NEW CHANGE IN BOWEL CONTROL? NO . GENITOURINARY: ANY NEW CHANGE IN BLADDER CONTROL? NO . IS THERE A CHANCE YOU COULD BE ? NO . HEMATOLOGY/LYMPH: DO YOU TAKE ANY BLOOD THINNERS? (FOR EXAMPLE- COUMADIN, PLAVIX, AGGRENOX, PLATEL, PRADAXA, OR XARELTO) NO . WHEN WAS YOUR LAST DOSE? DATE: TIME: . NEUROLOGY: HAVE YOU FALLEN IN THE PAST 12 MONTHS? NO . ANY NEW EXTREMITY NUMBNESS OR WEAKNESS? NO . CARDIOLOGY: DO YOU HAVE A PACEMAKER OR DEFIBRILLATOR? NO . RESPIRATORY: HAVE YOU BEEN SICK IN THE PAST WEEK? YES, CURRENTLY SICK WITH GASTRO VIRUS . FEVER NO . FLU LIKE SYMPTOMS? NO . COUGH NO . INTEGUMENTARY: DO YOU HAVE ANY RASHES OR OPEN SORES? NO . ALLERGIC/IMMUNO: ARE YOU ALLERGIC TO IV DYE? NO . ANY NEW ALLERGIES? NO . PSYCHIATRIC: DO YOU HAVE THOUGHTS OF HURTING YOURSELF OR SOMEONE ELSE? NO . ARE YOU ABUSED, NEGLECTED, OR IN AN UNSAFE ENVIRONMENT? NO . ENDOCRINOLOGY: ARE YOU DIABETIC? NO . OTHER: DO YOU NEED ANY PRESCRIPTIONS? NO . IF YES, PLEASE LIST: ____ . ANY NEW PROBLEMS WITH YOUR MEDICATIONS? NO . WHEN DID YOU LAST EAT? ____ . WHEN DID YOU LAST DRINK? ____ . WHAT DID YOU LAST DRINK? ____ . NAME OF PERSON DRIVING YOU HOME? ____ . DO YOU HAVE ANY OTHER QUESTIONS OR CONCERNS NO . VITAL SIGNS WT 210.6 LBS, HT 68 IN, BMI 32.02 INDEX, BP 159/79 MM HG, HR 74 /MIN, RR 18 /MIN, TEMP 99.0 F, OXYGEN SAT % 99%, NA INITIALS AW 1110, REVIEWED BY: PAYAL. EXAMINATION GENERAL EXAMINATION: GENERALNO ACUTE DISTRESS, WELL NOURISHED AND HYDRATED. PSYCHAPPROPRIATE MOOD AND AFFECT . LUNGS:CLEAR TO AUSCULTATION BILATERALLY, NO WHEEZES, RHONCHI, RALES. HEART:NO MURMURS, REGULAR RATE AND RHYTHM. ASSESSMENTS LUMBAGO OF MULTIPLE SITES IN SPINE WITH SCIATICA - M54.40 (PRIMARY) CERVICALGIA - M54.2 TREATMENT LUMBAGO OF MULTIPLE SITES IN SPINE WITH SCIATICA CLINICAL NOTES: 53-YEAR-OLD MALE IN FOR CHRONIC PAIN FOLLOW-UP. GIVEN PRESENTING SYMPTOMS AND RESULTS OF PHYSICAL EXAMINATION RECOMMENDED CONTINUATION OF CURRENT MEDICATION REGIMEN WITH FOLLOW-UP IN 3 MONTHS. PATIENT EXPRESSED UNDERSTANDING OF AND WAS IN AGREEMENT WITH TREATMENT PLAN. GIVEN TIME TO ASK QUESTIONS AND EXPRESS CONCERNS., ISTOP REGISTRY REVIEWED AND DEMONSTRATES COMPLLIANCE. (REF # [id number] ) BRINGS IN MEDICATIONS WHICH IS APPROPRIATE FOR WHAT WAS DISPENSED. RECENT URINE TOXICOLOGY REVIEWED. NO UNAUTHORIZED MEDICATIONS. NO ILLICIT SUBSTANCES AND PRESCRIBED MEDICATIONS WERE PRESENT. PROCEDURE CODES FA211 ESTABILISHED PATIENT [facility] FACILITY CHARGE DISPOSITION & COMMUNICATION FOLLOW UP 3 MONTHS (REASON: BACK PAIN) ELECTRONICALLY SIGNED BY MARY SEPULVEDA ON 01/26/2019 AT 09:05 AM EST DISCLAIMER : THIS IS A VISIT SUMMARY EXTRACTED FROM THE [employer] CHART. IT IS NOT A COPY OF THE [employer] PROGRESS NOTE. DAQUAN
== END ==
LOC: M PAIN 11:00
PROVIDERS: ATTEND Family Medicine
DX: M54.40 Lumbago with sciatica, unspecified side (principal); M54.2 Cervicalgia; G89.29 Other chronic pain; G47.30 Sleep apnea, unspecified; Z79.899 Other long term (current) drug therapy

== ENCOUNTER → 2019-05-13 | Outpatient (CLI) | payer MEDICARE, MEDICAID ==
--- NOTE | 2019-05-14 23:20 | ECWPNPC ---
PATIENT NAME: EFRA MARTEL : 1965 GENDER: MALE VISIT DATE: 05/13/2019 DISCHARGE DATE: 05/13/19 1130 VISIT LOCKED DATE TIME: PHYSICIAN: TAMIA ACEVEDO RESOURCE: TAMIA ACEVEDO REASON FOR APPOINTMENT 1. MED AB MEDS HISTORY OF PRESENT ILLNESS HISTORY OF PRESENT ILLNESS: PAIN THE PATIENT DESCRIBES THE PAINDURING THE LAST MONTH SEVERITY - PAIN SCORE OF3/10 LOCATIONSNECK, MID BACK, LOWER BACK QUALITYACHING , BURNING, STABBING, TENDER NUMBNESS IN BOTH LEGS DURATIONCONTINUOUS, CONSTANT, ALL DAY, MAINLY DURING THE NIGHT PAIN IS INCREASED BY:ACTIVITIES PERMISSION REQUESTED AND RECEIVED FROM PATIENT TO PERFORM TELEPHONE VISIT. 53-YEAR-OLD MALE IN FOR CHRONIC PAIN FOLLOW-UP. HE RATES PAIN CURRENTLY AT A 3 OUT OF 10 AND DESCRIBES IT ACHING, BURNING, STABBING, TENDER, NUMBNESS IN BOTH LEGS. HE FEELS MEDICATIONS ARE WORKING WELL AND DENIES MED SIDE EFFECTS AT THIS TIME. FALL RISK SCREENING: SCREENING :NO FALLS REPORTED IN THE LAST YEAR CURRENT MEDICATIONS TAKING DICLOFENAC SODIUM 1.5 % SOLUTION 40 DROPS TO AFFECTED AREA TRANSDERMAL NEEDED FOR PAIN FOUR TIMES A DAY TAKING PENNSAID 1.5% 1.5% DROPS 10 TOPICALLY FOUR TIMES DAILY NEEDED TAKING TIZANIDINE HCL 2 MG TABLET 1 TABLET NEEDED ORALLY FOR SPSMS AND PAIN BEFORE BEDTIME MAY REPEAT IN 4 HRS MDD2 TAKING GABAPENTIN 400 MG CAPSULE 1 CAPSULE ORALLY FOR PAIN BEFORE BEDTIME TAKING IBUPROFEN 800 MG TABLET 1 TABLET WITH FOOD ORALLY FOR PAIN TWICE DAILY NEEDED MDD2 TAKING OXYCODONE HCL 15 MG TABLET 1 TABLET NEEDED ORALLY Q8H PRN MDD4 TAKING LYRICA 200 MG CAPSULE 1 CAPSULE ORALLY THREE TIMES A DAY FOR PAIN MDD3 NOT-TAKING GABAPENTIN 300 MG CAPSULE 1 CAPSULE ORALLY QID FOR PAIN MDD4 NOT-TAKING PENNSAID 2 % SOLUTION 2 APPLICATIONS TO AFFECTED AREA TRANSDERMAL FOUR TIMES DAILY NEEDED FOR PAIN MEDICATION LIST REVIEWED AND RECONCILED WITH THE PATIENT PAST MEDICAL HISTORY SPINABIFIDA CHEST PAIN SLEEP APNEA ALLERGIES N.K.D.A. SURGICAL HISTORY NECK SURGERY 2001 NECK SURGERY 2010 FX WRIST RT RT CTR 3 LT SHOULDER SURGERY HOSPITALIZATION/MAJOR DIAGNOSTIC PROCEDURE SURGERY RELATED REVIEW OF SYSTEMS REVIEWED BY: PROVIDER: KAI ACEVEDO MINERAL INDUSTRY TEACHER-C . CONSTITUTIONAL: ANY CHANGE IN YOUR MEDICAL CONDITION? NO . CHILLS NO . FEVER NO . INFECTION: DO YOU HAVE NEW INFECTIONS? NO . DO YOU HAVE HISTORY OF MRSA? NO . MUSCULOSKELETAL: ANY NEW PATTERNS OF PAIN OR NUMBNESS? NO . GASTROENTEROLOGY: ANY NEW CHANGE IN BOWEL CONTROL? NO . GENITOURINARY: ANY NEW CHANGE IN BLADDER CONTROL? NO . IS THERE A CHANCE YOU COULD BE ? NO . HEMATOLOGY/LYMPH: DO YOU TAKE ANY BLOOD THINNERS? (FOR EXAMPLE- COUMADIN, PLAVIX, AGGRENOX, PLATEL, PRADAXA, OR XARELTO) NO . WHEN WAS YOUR LAST DOSE? DATE: TIME: . NEUROLOGY: HAVE YOU FALLEN IN THE PAST 12 MONTHS? NO . ANY NEW EXTREMITY NUMBNESS OR WEAKNESS? NO . CARDIOLOGY: DO YOU HAVE A PACEMAKER OR DEFIBRILLATOR? NO . RESPIRATORY: HAVE YOU BEEN SICK IN THE PAST WEEK? NO . FEVER NO . FLU LIKE SYMPTOMS? NO . COUGH NO . INTEGUMENTARY: DO YOU HAVE ANY RASHES OR OPEN SORES? NO . ALLERGIC/IMMUNO: ARE YOU ALLERGIC TO IV DYE? NO . ANY NEW ALLERGIES? NO . PSYCHIATRIC: DO YOU HAVE THOUGHTS OF HURTING YOURSELF OR SOMEONE ELSE? NO . ARE YOU ABUSED, NEGLECTED, OR IN AN UNSAFE ENVIRONMENT? NO . ENDOCRINOLOGY: ARE YOU DIABETIC? NO . OTHER: DO YOU NEED ANY PRESCRIPTIONS? YES. ALL MEDS REFILL . IF YES, PLEASE LIST: ____ . ANY NEW PROBLEMS WITH YOUR MEDICATIONS? NO . WHEN DID YOU LAST EAT? ____ . WHEN DID YOU LAST DRINK? ____ . WHAT DID YOU LAST DRINK? ____ . NAME OF PERSON DRIVING YOU HOME? ____ . DO YOU HAVE ANY OTHER QUESTIONS OR CONCERNS NO . ASSESSMENTS LUMBAGO OF MULTIPLE SITES IN SPINE WITH SCIATICA - M54.40 (PRIMARY) TREATMENT LUMBAGO OF MULTIPLE SITES IN SPINE WITH SCIATICA CLINICAL NOTES: 53-YEAR-OLD MALE IN FOR CHRONIC PAIN FOLLOW-UP. GIVEN PRESENTING SYMPTOMS RECOMMENDED CONTINUATION OF CURRENT MEDICATION REGIMEN WITH FOLLOW-UP IN 3 MONTHS. PATIENT HAS EXPRESSED UNDERSTANDING OF AND WAS IN AGREEMENT WITH TREATMENT PLAN. GIVEN TIME TO ASK QUESTIONS AND EXPRESS CONCERNS., ISTOP REGISTRY REVIEWED AND DEMONSTRATES COMPLLIANCE. (REF # ) BRINGS IN MEDICATIONS WHICH IS APPROPRIATE FOR WHAT WAS DISPENSED. RECENT URINE TOXICOLOGY REVIEWED. NO UNAUTHORIZED MEDICATIONS. NO ILLICIT SUBSTANCES AND PRESCRIBED MEDICATIONS WERE PRESENT. THIS VISIT TO BE BILLED BASED ON TIME SPENT WITH PATIENT. TIME SPENT WITH PATIENT 11 MINUTES. DISPOSITION & COMMUNICATION FOLLOW UP 3 MONTHS (REASON: BACK PAIN) ELECTRONICALLY SIGNED BY MARY SEPULVEDA ON 05/14/2019 AT 09:31 AM EDT DISCLAIMER : THIS IS A VISIT SUMMARY EXTRACTED FROM THE [employer] CHART. IT IS NOT A COPY OF THE [employer] PROGRESS NOTE. DAQUAN
== END ==
LOC: M PAIN 11:15
PROVIDERS: ATTEND Family Medicine
DX: M54.40 Lumbago with sciatica, unspecified side (principal); Z79.891 Long term (current) use of opiate analgesic; Z79.899 Other long term (current) drug therapy

== ENCOUNTER → 2019-06-18 | Outpatient (CLI) | payer MEDICARE, MEDICAID ==
--- NOTE | 2019-07-28 04:05 | ECWPNPC ---
PATIENT NAME: EFRA MARTEL : 1965 GENDER: MALE VISIT DATE: 06/18/2019 DISCHARGE DATE: 06/18/19831 VISIT LOCKED DATE TIME: PHYSICIAN: TAMIA ACEVEDO RESOURCE: TAMIA ACEVEDO REASON FOR APPOINTMENT 1. MEDICARE AB UTOX ONLY- BE HERE AROUND 9 ALLERGIES NO[ALLERGIES VERIFIED] VITAL SIGNS WT 219 LBS, HT 68 IN, BMI 33.30 INDEX, TEMP 98.4 F. DISPOSITION & COMMUNICATION ELECTRONICALLY SIGNED BY MARY SEPULVEDA ON 07/27/2019 AT 02:16 PM EDT DISCLAIMER : THIS IS A VISIT SUMMARY EXTRACTED FROM THE [employer] CHART. IT IS NOT A COPY OF THE [employer] PROGRESS NOTE. DAQUAN
== END ==
LOC: M PAIN 08:30
PROVIDERS: ATTEND Family Medicine
DX: Z79.891 Long term (current) use of opiate analgesic (principal)

== ENCOUNTER → 2019-10-08 | Outpatient (CLI) | payer MEDICARE, MEDICAID | LOC: M PAIN 10:59 | PROVIDERS: ATTEND Family Medicine | DX: M54.40 Lumbago with sciatica, unspecified side (principal) ==

== ENCOUNTER → 2019-12-29 | Outpatient (CLI) | payer MEDICARE, MEDICAID ==
--- NOTE | 2020-01-01 02:27 | ECWPNPC ---
PATIENT NAME: EFRA MARTEL : 1965 GENDER: MALE VISIT DATE: 12/29/2019 DISCHARGE DATE: 12/29/19 1148 VISIT LOCKED DATE TIME: PHYSICIAN: TAMIA ACEVEDO RESOURCE: TAMIA ACEVEDO REASON FOR APPOINTMENT 1. MED AB-NECK/BACK HISTORY OF PRESENT ILLNESS GENERAL: -54-YEAR-OLD MALE IN FOR CHRONIC PAIN FOLLOW-UP. HE RATES HIS PAIN CURRENTLY AT A 2 OUT OF 10 AND DESCRIBES IT ACHING. HE FEELS MEDICATIONS ARE BENEFICIAL AND DENIES MED SIDE EFFECTS AT THIS TIME. FALL RISK SCREENING: SCREENING :NO FALLS REPORTED IN THE LAST YEAR PAIN SCREENING: PATIENT HAS A COMPLAINT OF ACUTE OR CHRONIC PAIN :YES LOCATION OF PAIN:NECK, LOW BACK INTENSITY OF PAIN (SCALE OF 1 TO 10):2 WHAT DOES YOUR PAIN FEEL LIKE:ACHING DURATION:STEADY PAIN IS INCREASED BY:ACTIVITIES, PROLONGED STANDING PAIN IS DECREASED BY:USE OF PAIN MEDICATIONS TREATMENT/MEDICATIONS USED TO MANAGE PAIN:OPIOIDS PAIN HAS INTERFERED WITH THE FOLLOWING:EMPLOYMENT, SLEEP, ENJOYMENT OF LIFE NURSING NOTE: -. CURRENT MEDICATIONS TAKING DICLOFENAC SODIUM 1.5 % SOLUTION 40 DROPS TO AFFECTED AREA TRANSDERMAL NEEDED FOR PAIN FOUR TIMES A DAY TAKING PENNSAID 1.5% 1.5% DROPS 10 TOPICALLY FOUR TIMES DAILY NEEDED TAKING TIZANIDINE HCL 2 MG TABLET 1 TABLET NEEDED ORALLY FOR SPSMS AND PAIN BEFORE BEDTIME MAY REPEAT IN 4 HRS MDD2 TAKING OXYCODONE HCL 15 MG TABLET 1 TABLET NEEDED ORALLY Q8H PRN MDD4 TAKING LYRICA 200 MG CAPSULE 1 CAPSULE ORALLY THREE TIMES A DAY FOR PAIN MDD3 TAKING GABAPENTIN 400 MG CAPSULE 1 CAPSULE ORALLY FOR PAIN BEFORE BEDTIME TAKING IBUPROFEN 800 MG TABLET 1 TABLET WITH FOOD ORALLY FOR PAIN TWICE DAILY NEEDED MDD2 NOT-TAKING GABAPENTIN 300 MG CAPSULE 1 CAPSULE ORALLY QID FOR PAIN MDD4 NOT-TAKING PENNSAID 2 % SOLUTION 2 APPLICATIONS TO AFFECTED AREA TRANSDERMAL FOUR TIMES DAILY NEEDED FOR PAIN MEDICATION LIST REVIEWED AND RECONCILED WITH THE PATIENT PAST MEDICAL HISTORY SPINABIFIDA CHEST PAIN SLEEP APNEA ALLERGIES N.K.D.A. SURGICAL HISTORY NECK SURGERY 2000 NECK SURGERY 2009 FX WRIST RT RT CTR 3 LT SHOULDER SURGERY FAMILY HISTORY FATHER: ALIVE, DIAGNOSED WITH DIABETES, HYPERTENSION MOTHER: ALIVE, HYPERTENSION, DIABETES, UNSPECIFIED CEREBRAL ARTERY OCCLUSION WITH CEREBRAL INFARCTION, OTHER MALIGNANT NEOPLASM OF UNSPECIFIED SITE 1 BROTHER(S) , 3 SISTER(S) . 1 SON(S) , 2 DAUGHTER(S) - HEALTHY. BROTHER - GUN SHOT WOUND; SISTERS HEALTHY. SOCIAL HISTORY GENERAL: TOBACCO USE ARE YOU A:NONSMOKER ALCOHOL SCREENING DID YOU HAVE A DRINK CONTAINING ALCOHOL IN THE PAST YEAR?YES HOW OFTEN DID YOU HAVE A DRINK CONTAINING ALCOHOL IN THE PAST YEAR?MONTHLY OR LESS (1 POINT) POINTS1 INTERPRETATIONNEGATIVE RECREATIONAL DRUG USE DRUG USE?NO CAFFEINE CAFFEINE USE?YES HOW OFTEN AND HOW MUCH? COFFEE AND MOUNTAIN DEW RASTAFARIAN [id number] LUTHERAN LANGUAGE LANGUAGES SPOKEN:BURKINAN LEARNING BARRIERS / SPECIAL NEEDS BARRIERS TO LEARNING?NO READINESS TO LEARN?YES LEARNING PREFERENCES?NO LEARNING CAPABILITIES PRESENT?YES PAIN CLINIC PFS, CLERGY, PUBLIC HEALTH REFERRALS PFS REFERRAL NEEDED?NO CLERGY REFERRAL NEEDED?NO PUBLIC HEALTH REFERRAL NEEDED?NO WAS THE PROVIDER NOTIFIED OF ANY PERTINENT INFO?NO HAS THE PATIENT BEEN EDUCATED REGARDING HIS/HER PLAN OF CARE?YES HAS THE PATIENT BEEN EDUCATED REGARDING PAIN, THE RISK FOR PAIN, THE IMPORTANCE OF EFFECTIVE PAIN MANAGEMENT, AND THE PAIN ASSESSMENT PROCESS?YES ADVANCE DIRECTIVE ADVANCE DIRECTIVE DISCUSSED WITH PATIENT:YES DECLINED INFORMATION HOSPITALIZATION/MAJOR DIAGNOSTIC PROCEDURE SURGERY RELATED REVIEW OF SYSTEMS CONSTITUTIONAL: ANY RECENT FEVER NO . CHILLS NO . WEIGHT CHANGE OF UNKNOWN REASONS NO . GASTROENTEROLOGY: NEW UNEXPLAINABLE CHANGES IN BOWEL CONTROL NO . CONSTIPATION NO . GENITOURINARY: ANY NEW CHANGE IN BLADDER CONTROL? NO . NEUROLOGY: NEW ONSET DIZZINESS OR NEUROLOGICAL CHANGES NOT MENTIONED NO . NEW NUMBNESS OR PAIN PATTERNS NOT MENTIONED AND PERTINENT TO TODAY'S VISIT NO . CARDIOLOGY: NEW CHEST PRESSURE NO . NEW CHEST PAIN NO . RESPIRATORY: UNEXPLAINABLE COUGH NO . NEW SHORTNESS OF BREATH NO . VITAL SIGNS WT 217.8 LBS, HT 68 IN, BMI 33.11 INDEX, BP 142/85 MM HG, HR 118 /MIN, RR 18 /MIN, TEMP 98.1 F, OXYGEN SAT % 97%, NA INITIALS AW 1107. EXAMINATION GENERAL EXAMINATION: GENERALNO ACUTE DISTRESS, WELL NOURISHED AND HYDRATED. PSYCHAPPROPRIATE MOOD AND AFFECT . LUNGS:CLEAR TO AUSCULTATION BILATERALLY, NO WHEEZES, RHONCHI, RALES. HEART:NO MURMURS, REGULAR RATE AND RHYTHM. ASSESSMENTS POSTLAMINECTOMY SYNDROME, NOT ELSEWHERE CLASSIFIED - M96.1 (PRIMARY) TREATMENT POSTLAMINECTOMY SYNDROME, NOT ELSEWHERE CLASSIFIED NOTES: 54-YEAR-OLD MALE IN FOR CHRONIC PAIN FOLLOW-UP. GIVEN PRESENTING SYMPTOMS RECOMMENDED CONTINUATION OF CURRENT MEDICATION REGIMEN WITH FOLLOW-UP IN 3 MONTHS. PATIENT HAS EXPRESSED UNDERSTANDING OF AND WAS IN AGREEMENT WITH TREATMENT PLAN. GIVEN TIME TO ASK QUESTIONS AND EXPRESS CONCERNS. , ISTOP REGISTRY REVIEWED AND DEMONSTRATES COMPLLIANCE. (REF # [id number] ) BRINGS IN MEDICATIONS WHICH IS APPROPRIATE FOR WHAT WAS DISPENSED. RECENT URINE TOXICOLOGY REVIEWED. NO UNAUTHORIZED MEDICATIONS. NO ILLICIT SUBSTANCES AND PRESCRIBED MEDICATIONS WERE PRESENT. DISPOSITION & COMMUNICATION FOLLOW UP 3 MONTHS (REASON: BACK PAIN) ELECTRONICALLY SIGNED BY MARY SEPULVEDA ON 12/31/2019 AT 08:35 AM EST DISCLAIMER : THIS IS A VISIT SUMMARY EXTRACTED FROM THE [employer] CHART. IT IS NOT A COPY OF THE [employer] PROGRESS NOTE. DAQUAN
== END ==
LOC: M PAIN 11:15
PROVIDERS: ATTEND Family Medicine
DX: M96.1 Postlaminectomy syndrome, not elsewhere classified (principal); G47.30 Sleep apnea, unspecified; Z79.899 Other long term (current) drug therapy

== ENCOUNTER → 2020-05-17 | Outpatient (CLI) | payer MEDICARE, MEDICAID ==
--- NOTE | 2020-05-19 00:10 | ECWPNPC ---
PATIENT NAME: EFRA MARTEL : 1965 GENDER: MALE VISIT DATE: 05/17/2020 DISCHARGE DATE: 05/17/20 1043 VISIT LOCKED DATE TIME: PHYSICIAN: TAMIA ACEVEDO RESOURCE: TAMIA ACEVEDO REASON FOR APPOINTMENT 1. MED AB-NECK/BACK HISTORY OF PRESENT ILLNESS DEPRESSION SCREENING: PHQ-2 (2015 EDITION) LITTLE INTEREST OR PLEASURE IN DOING THINGS?NOT AT ALL FEELING DOWN, DEPRESSED, OR HOPELESS?NOT AT ALL TOTAL SCORE0 54-YEAR-OLD MALE IN FOR CHRONIC PAIN FOLLOW-UP. HE RATES HIS PAIN CURRENTLY AT A FOURTH 10 AND DESCRIBES IT ACHING, BURNING, AND CONTINUOUS. HE FEELS THE MEDICATIONS ARE HELPFUL AND DENIES MED SIDE EFFECTS AT THIS TIME. GENERAL: -. FALL RISK SCREENING: SCREENING : NO FALLS REPORTED IN THE LAST YEAR. PAIN SCREENING: PATIENT HAS A COMPLAINT OF ACUTE OR CHRONIC PAIN :YES LOCATION OF PAIN:NECK, UPPER BACK, MID BACK, LOW BACK INTENSITY OF PAIN (SCALE OF 1 TO 10):4 WHAT DOES YOUR PAIN FEEL LIKE:ACHING, BURNING, CONTINOUS DURATION:CONTINOUS, CONSTANT, STEADY, AWAKENS FROM SLEEP PAIN IS INCREASED BY:ACTIVITIES, PROLONGED STANDING PAIN IS DECREASED BY:USE OF PAIN MEDICATIONS, OTHERS POSITIONAL CHANGES NURSING NOTE: -. PAIN CENTER INTAKE QUESTIONS: DO YOU HAVE A HISTORY OF MRSA? :NO DO YOU TAKE A BLOOD THINNERS? :NO DO YOU HAVE ANY BLEEDING DISORDERS? :NO ANY NEW NUMBNESS OR WEAKNESS IN YOUR LEGS OR ARMS? :NO ANY PACEMAKER,DEFIBRILLATOR, OR DORSAL COLUMN STIMULATOR? :NO DO YOU HAVE ANY RASHES OR OPEN SORES? :NO ARE YOU ALLERGIC TO IV DYE? :NO ARE YOU DIABETIC? :NO ANY NEW PROBLEMS WITH YOUR MEDICATIONS? :NO HAVE YOU RECEIVED A VACCINE IN THE PAST 30 DAYS? :NO DO YOU PLAN TO RECEIVE A VACCINE IN THE NEXT 21 DAYS? :NO DO YOU NEED ANY PRESCRIPTION? :NO DO YOU TAKE ANY IMMUNOSUPPRESSIVE MEDICATIONS? :NO DO YOU HAVE ANY KIDNEY OR LIVER DISEASE? :NO IS THERE A CHANCE YOU COULD BE ? :NO ARE YOU BREAST FEEDING? :NO CURRENT MEDICATIONS TAKING DICLOFENAC SODIUM 1.5 % SOLUTION 40 DROPS TO AFFECTED AREA TRANSDERMAL NEEDED FOR PAIN FOUR TIMES A DAY TAKING PENNSAID 1.5% 1.5% DROPS 10 TOPICALLY FOUR TIMES DAILY NEEDED TAKING IBUPROFEN 800 MG TABLET 1 TABLET WITH FOOD ORALLY FOR PAIN TWICE DAILY NEEDED MDD2 TAKING TIZANIDINE HCL 2 MG TABLET 1 TABLET NEEDED ORALLY FOR SPSMS AND PAIN BEFORE BEDTIME MAY REPEAT IN 4 HRS MDD2 TAKING OXYCODONE HCL 15 MG TABLET 1 TABLET NEEDED ORALLY Q8H PRN MDD4 TAKING LYRICA 200 MG CAPSULE 1 CAPSULE ORALLY THREE TIMES A DAY FOR PAIN MDD3 TAKING GABAPENTIN 400 MG CAPSULE 1 CAPSULE ORALLY FOR PAIN BEFORE BEDTIME NOT-TAKING GABAPENTIN 300 MG CAPSULE 1 CAPSULE ORALLY QID FOR PAIN MDD4 NOT-TAKING PENNSAID 2 % SOLUTION 2 APPLICATIONS TO AFFECTED AREA TRANSDERMAL FOUR TIMES DAILY NEEDED FOR PAIN MEDICATION LIST REVIEWED AND RECONCILED WITH THE PATIENT PAST MEDICAL HISTORY SPINABIFIDA CHEST PAIN SLEEP APNEA ALLERGIES N.K.D.A. SOCIAL HISTORY GENERAL: TOBACCO USE ARE YOU A:NONSMOKER LATEX QUESTIONNAIRE LATEX ALLERGY : HAVE YOU EVER DEVELOPED ANY TYPE OF REACTION AFTER HANDLING LATEX PRODUCTS SUCH RUBBER GLOVES, CONDOMS, DIAPHRAGMS, BALLOONS, SOCKS, OR UNDERWEAR?NO LATEX ALLERGY : HAVE YOU EVER DEVELOPED ANY TYPE OF REACTION DURING OR AFTER DENTAL APPOINTMENT, VAGINAL/RECTAL EXAMINATION, SURGICAL PROCEDURE, OR ANY OTHER EXPOSURE?NO LATEX RISK : HAVE YOU EVER HAD ANY DIFFICULTY BREATHING OR HIVES AFTER EATING OR HANDLING ANY FRUITS, OR VEGETABLES; SUCH KIWI, BANANAS, STONE FRUITS, OR CHESTNUTSNO LATEX RISK : DO YOU HAVE A PREVIOUS PERSONAL HISTORY OF MORE THAN NINE SURGERIES, SPINA BIFIDA, OR REPEATED CATHERIZATIONS? YES - PLEASE INDICATE : SPINE BIFIDA LATEX RISK : ARE YOU FREQUENTLY EXPOSED TO LATEX PRODUCTS IN YOUR OCCUPATION?NO DATE ASKED : 05/17/2020 ALCOHOL USE: OCCASIONAL. ALCOHOL SCREENING DID YOU HAVE A DRINK CONTAINING ALCOHOL IN THE PAST YEAR?YES HOW OFTEN DID YOU HAVE A DRINK CONTAINING ALCOHOL IN THE PAST YEAR?MONTHLY OR LESS (1 POINT) POINTS1 INTERPRETATIONNEGATIVE RECREATIONAL DRUG USE DRUG USE?NO CAFFEINE CAFFEINE USE?YES HOW OFTEN AND HOW MUCH? 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 CHILLS NO . WEIGHT CHANGE OF UNKNOWN REASONS NO . GASTROENTEROLOGY: NEW UNEXPLAINABLE CHANGES IN BOWEL CONTROL NO . CONSTIPATION NO . GENITOURINARY: ANY NEW CHANGE IN BLADDER CONTROL? NO . NEUROLOGY: NEW ONSET DIZZINESS OR NEUROLOGICAL CHANGES NOT MENTIONED NO . NEW NUMBNESS OR PAIN PATTERNS NOT MENTIONED AND PERTINENT TO TODAY'S VISIT NO . CARDIOLOGY: NEW CHEST PRESSURE NO . PATIENT DENIES NO . RESPIRATORY: UNEXPLAINABLE COUGH NO . NEW SHORTNESS OF BREATH NO . VITAL SIGNS WT 219.4 LBS, HT 68 IN, BMI 33.36 INDEX, BP 161/80 MM HG, HR 90 /MIN, RR 18 /MIN, TEMP 98.8 F, OXYGEN SAT % 98%, SAFE IN ENV? (Y/N) YES, REVIEWED BY: TONE MAYA MA. EXAMINATION GENERAL EXAMINATION: GENERALNO ACUTE DISTRESS, WELL NOURISHED AND HYDRATED. PSYCHAPPROPRIATE MOOD AND AFFECT . LUNGS:CLEAR TO AUSCULTATION BILATERALLY, NO WHEEZES, RHONCHI, RALES. HEART:NO MURMURS, REGULAR RATE AND RHYTHM. ASSESSMENTS CERVICALGIA - M54.2 (PRIMARY), RISK: (NULL) LUMBAGO OF MULTIPLE SITES IN SPINE WITH SCIATICA - M54.40, RISK: (NULL) TREATMENT CERVICALGIA NOTES: 54-YEAR-OLD MALE IN FOR CHRONIC PAIN FOLLOW-UP. GIVEN PRESENTING SYMPTOMS RECOMMENDED CONTINUATION OF CURRENT MEDICATION REGIMEN WITH FOLLOW-UP IN 3 MONTHS. PATIENT HAS EXPRESSED UNDERSTANDING OF AND WAS IN AGREEMENT WITH TREATMENT PLAN. GIVEN TIME TO ASK QUESTIONS AND EXPRESS CONCERNS. , ISTOP REGISTRY REVIEWED AND DEMONSTRATES COMPLLIANCE. (REF # ) BRINGS IN MEDICATIONS WHICH IS APPROPRIATE FOR WHAT WAS DISPENSED. RECENT URINE TOXICOLOGY REVIEWED. NO UNAUTHORIZED MEDICATIONS. NO ILLICIT SUBSTANCES AND PRESCRIBED MEDICATIONS WERE PRESENT. PROCEDURE CODES FA211 ESTABILISHED PATIENT [facility] CHARGE DISPOSITION & COMMUNICATION FOLLOW UP 3 MONTHS (REASON: LOW BACK PAIN ) ELECTRONICALLY SIGNED BY MARY SEPULVEDA ON 05/18/2020 AT 10:37 AM EDT DISCLAIMER : THIS IS A VISIT SUMMARY EXTRACTED FROM THE [employer] CHART. IT IS NOT A COPY OF THE [employer] PROGRESS NOTE. DAQUAN
== END ==
LOC: M PAIN 10:00
PROVIDERS: ATTEND Family Medicine
DX: M54.2 Cervicalgia (principal); M54.40 Lumbago with sciatica, unspecified side; G89.29 Other chronic pain; G47.30 Sleep apnea, unspecified; Z79.899 Other long term (current) drug therapy

== ENCOUNTER → 2020-09-05 | Outpatient (CLI) | payer MEDICARE, MEDICAID ==
--- NOTE | 2020-09-07 01:15 | ECWPNPC ---
PATIENT NAME: EFRA MARTEL : 1965 GENDER: MALE VISIT DATE: 09/05/2020 DISCHARGE DATE: 09/05/20 1152 VISIT LOCKED DATE TIME: PHYSICIAN: TAMIA ACEVEDO RESOURCE: TAMIA ACEVEDO REASON FOR APPOINTMENT 1. MED AB-NECK/BACK HISTORY OF PRESENT ILLNESS GENERAL: HPI 54-YEAR-OLD MALE IN FOR CHRONIC PAIN FOLLOW-UP. HE RATES HIS PAIN CURRENTLY AT A 2 OUT OF 10 DESCRIBES IT ACHING, CONTINUOUS, AND SHOOTING. PATIENT FEELS HIS MEDICATIONS ARE HELPFUL AND DENIES MED SIDE EFFECTS AT THIS TIME.. -. FALL RISK SCREENING: SCREENING ONE FALL IN MAR SLIP ON ICE, DID NOT GO THE E , NO MAJOR INJURIES. PAIN SCREENING: PATIENT HAS A COMPLAINT OF ACUTE OR CHRONIC PAIN :YES LOCATION OF PAIN:NECK, LOW BACK INTENSITY OF PAIN (SCALE OF 1 TO 10):2 WHAT DOES YOUR PAIN FEEL LIKE:ACHING, CONTINOUS, SHOOTING DURATION:CONTINOUS, CONSTANT, ALL DAY PAIN IS INCREASED BY:ACTIVITIES PAIN IS DECREASED BY:USE OF PAIN MEDICATIONS NURSING NOTE: -. PAIN CENTER INTAKE QUESTIONS: DO YOU HAVE A HISTORY OF MRSA? :NO DO YOU TAKE A BLOOD THINNERS? :NO DO YOU HAVE ANY BLEEDING DISORDERS? :NO ANY NEW NUMBNESS OR WEAKNESS IN YOUR LEGS OR ARMS? :NO ANY PACEMAKER,DEFIBRILLATOR, OR DORSAL COLUMN STIMULATOR? :NO DO YOU HAVE ANY RASHES OR OPEN SORES? :NO ARE YOU ALLERGIC TO IV DYE? :NO ARE YOU DIABETIC? :NO ANY NEW PROBLEMS WITH YOUR MEDICATIONS? :NO HAVE YOU RECEIVED A VACCINE IN THE PAST 30 DAYS? :NO DO YOU PLAN TO RECEIVE A VACCINE IN THE NEXT 21 DAYS? :NO DO YOU NEED ANY PRESCRIPTION? :NO DO YOU TAKE ANY IMMUNOSUPPRESSIVE MEDICATIONS? :NO DO YOU HAVE ANY KIDNEY OR LIVER DISEASE? :NO IS THERE A CHANCE YOU COULD BE ? :NO ARE YOU BREAST FEEDING? :NO CURRENT MEDICATIONS TAKING DICLOFENAC SODIUM 1.5 % SOLUTION 40 DROPS TO AFFECTED AREA TRANSDERMAL NEEDED FOR PAIN FOUR TIMES A DAY TAKING IBUPROFEN 800 MG TABLET 1 TABLET WITH FOOD ORALLY FOR PAIN TWICE DAILY NEEDED MDD2 TAKING TIZANIDINE HCL 2 MG TABLET 1 TABLET NEEDED ORALLY FOR SPSMS AND PAIN BEFORE BEDTIME MAY REPEAT IN 4 HRS MDD2 TAKING GABAPENTIN 400 MG CAPSULE 1 CAPSULE ORALLY FOR PAIN BEFORE BEDTIME TAKING LYRICA 200 MG CAPSULE 1 CAPSULE ORALLY THREE TIMES A DAY FOR PAIN MDD3 TAKING OXYCODONE HCL 15 MG TABLET 1 TABLET NEEDED ORALLY Q8H PRN MDD4 NOT-TAKING GABAPENTIN 300 MG CAPSULE 1 CAPSULE ORALLY QID FOR PAIN MDD4 NOT-TAKING PENNSAID 2 % SOLUTION 2 APPLICATIONS TO AFFECTED AREA TRANSDERMAL FOUR TIMES DAILY NEEDED FOR PAIN NOT-TAKING PENNSAID 1.5% 1.5% DROPS 10 TOPICALLY FOUR TIMES DAILY NEEDED MEDICATION LIST REVIEWED AND RECONCILED WITH THE PATIENT PAST MEDICAL HISTORY SPINABIFIDA CHEST PAIN SLEEP APNEA ALLERGIES N.K.D.A. SOCIAL HISTORY GENERAL: TOBACCO USE ARE YOU A:NONSMOKER LATEX QUESTIONNAIRE LATEX ALLERGY : HAVE YOU EVER DEVELOPED ANY TYPE OF REACTION AFTER HANDLING LATEX PRODUCTS SUCH RUBBER GLOVES, CONDOMS, DIAPHRAGMS, BALLOONS, SOCKS, OR UNDERWEAR?NO LATEX ALLERGY : HAVE YOU EVER DEVELOPED ANY TYPE OF REACTION DURING OR AFTER DENTAL APPOINTMENT, VAGINAL/RECTAL EXAMINATION, SURGICAL PROCEDURE, OR ANY OTHER EXPOSURE?NO LATEX RISK : HAVE YOU EVER HAD ANY DIFFICULTY BREATHING OR HIVES AFTER EATING OR HANDLING ANY FRUITS, OR VEGETABLES; SUCH KIWI, BANANAS, STONE FRUITS, OR CHESTNUTSNO LATEX RISK : DO YOU HAVE A PREVIOUS PERSONAL HISTORY OF MORE THAN NINE SURGERIES, SPINA BIFIDA, OR REPEATED CATHERIZATIONS? YES - PLEASE INDICATE : SPINE BIFIDA LATEX RISK : ARE YOU FREQUENTLY EXPOSED TO LATEX PRODUCTS IN YOUR OCCUPATION?NO DATE ASKED : 09/05/2020 ALCOHOL USE: OCCASIONAL. ALCOHOL SCREENING DID YOU HAVE A DRINK CONTAINING ALCOHOL IN THE PAST YEAR?YES HOW OFTEN DID YOU HAVE A DRINK CONTAINING ALCOHOL IN THE PAST YEAR?MONTHLY OR LESS (1 POINT) POINTS1 INTERPRETATIONNEGATIVE RECREATIONAL DRUG USE DRUG USE?NO CAFFEINE CAFFEINE USE?YES HOW OFTEN AND HOW MUCH? 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 - PFS REFERRAL NEEDED?NO CLERGY REFERRAL NEEDED?NO PUBLIC HEALTH REFERRAL NEEDED?NO WAS THE PROVIDER NOTIFIED OF ANY PERTINENT INFO?NO HAS THE PATIENT BEEN EDUCATED REGARDING HIS/HER PLAN OF CARE?YES HAS THE PATIENT BEEN EDUCATED REGARDING PAIN, THE RISK FOR PAIN, THE IMPORTANCE OF EFFECTIVE PAIN MANAGEMENT, AND THE PAIN ASSESSMENT PROCESS?YES ADVANCE DIRECTIVE ADVANCE DIRECTIVE DISCUSSED WITH PATIENT:YES DECLINED INFORMATION REVIEW OF SYSTEMS CONSTITUTIONAL: ANY RECENT FEVER NO . CHILLS NO . WEIGHT CHANGE OF UNKNOWN REASONS NO . GASTROENTEROLOGY: NEW UNEXPLAINABLE CHANGES IN BOWEL CONTROL NO . CONSTIPATION NO . GENITOURINARY: ANY NEW CHANGE IN BLADDER CONTROL? NO . NEUROLOGY: NEW ONSET DIZZINESS OR NEUROLOGICAL CHANGES NOT MENTIONED NO . NEW NUMBNESS OR PAIN PATTERNS NOT MENTIONED AND PERTINENT TO TODAY'S VISIT NO . CARDIOLOGY: NEW CHEST PRESSURE NO . PATIENT DENIES NO . RESPIRATORY: UNEXPLAINABLE COUGH NO . NEW SHORTNESS OF BREATH NO . VITAL SIGNS WT 220.0 LBS, HT 68 IN, BMI 33.45 INDEX, BP 154/96 MM HG, REPEAT BP 138/82 MM HG, HR 96 /MIN, RR 18 /MIN, TEMP 97.5 F, OXYGEN SAT % 96%, SAFE IN ENV? (Y/N) YES, NA INITIALS AW 1132T.ALEXIA MARTINEZ. EXAMINATION GENERAL EXAMINATION: GENERALNO ACUTE DISTRESS, WELL NOURISHED AND HYDRATED. PSYCHAPPROPRIATE MOOD AND AFFECT . LUNGS:CLEAR TO AUSCULTATION BILATERALLY, NO WHEEZES, RHONCHI, RALES. HEART:NO MURMURS, REGULAR RATE AND RHYTHM. ASSESSMENTS POSTLAMINECTOMY SYNDROME, NOT ELSEWHERE CLASSIFIED - M96.1 (PRIMARY) CHRONIC PRESCRIPTION OPIATE USE - Z79.891 TREATMENT POSTLAMINECTOMY SYNDROME, NOT ELSEWHERE CLASSIFIED NOTES: 54-YEAR-OLD MALE IN FOR CHRONIC PAIN FOLLOW-UP. GIVEN PRESENTING SYMPTOMS RECOMMEND CONTINUATION OF CURRENT MEDICATION REGIMEN WITH FOLLOW-UP IN 3 MONTHS. PATIENT HAS EXPRESSED UNDERSTANDING OF AND WAS IN AGREEMENT WITH TREATMENT PLAN. GIVEN TIME TO ASK QUESTIONS AND EXPRESS CONCERNS. ISTOP REGISTRY REVIEWED AND DEMONSTRATES COMPLLIANCE. (REF # [id number] ) BRINGS IN MEDICATIONS WHICH IS APPROPRIATE FOR WHAT WAS DISPENSED. RECENT URINE TOXICOLOGY REVIEWED. NO UNAUTHORIZED MEDICATIONS. NO ILLICIT SUBSTANCES AND PRESCRIBED MEDICATIONS WERE PRESENT. CHRONIC PRESCRIPTION OPIATE USE LAB: URINE TEST GROUP ALBERTO HALE 09/05/2020 11:48:46 AM > LAST DOSE: LYRICA 09/04/2020 OXYCODONE 09/05/2020 GABAPENTIN 09/04/2020 PROCEDURE CODES FA211 ESTABILISHED PATIENT [facility] CHARGE DISPOSITION & COMMUNICATION FOLLOW UP 3 MONTHS (REASON: BACK PAIN) ELECTRONICALLY SIGNED BY MARY SEPULVEDA ON 09/06/2020 AT 09:43 AM EDT DISCLAIMER : THIS IS A VISIT SUMMARY EXTRACTED FROM THE [employer] CHART. IT IS NOT A COPY OF THE [employer] PROGRESS NOTE. DAQUAN
== END ==
LOC: M PAIN 11:15
PROVIDERS: ATTEND Family Medicine
DX: M96.1 Postlaminectomy syndrome, not elsewhere classified (principal); Z79.891 Long term (current) use of opiate analgesic; G47.30 Sleep apnea, unspecified; Z79.899 Other long term (current) drug therapy

== ENCOUNTER → 2020-10-03 | Outpatient (CLI) | payer MEDICARE, MEDICAID | LOC: M PAIN 09:30 | PROVIDERS: ATTEND Anesthesiology | DX: M54.2 Cervicalgia (principal); M54.40 Lumbago with sciatica, unspecified side; G89.29 Other chronic pain; G47.30 Sleep apnea, unspecified; Z79.899 Other long term (current) drug therapy ==

== ENCOUNTER → 2020-10-28 | Outpatient (CLI) | payer MEDICAID, MEDICARE | LOC: M PAIN 10:00 | PROVIDERS: ATTEND Anesthesiology | DX: M54.40 Lumbago with sciatica, unspecified side (principal); G89.29 Other chronic pain; G47.30 Sleep apnea, unspecified; Z79.899 Other long term (current) drug therapy ==